=== PATIENT | female | born 2000 | race Caucasian/White ===

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

== ENCOUNTER 2021-05-19 04:32 | Outpatient (CLI) | payer MEDICAID, SELFPAY ==
--- NOTE | 2021-06-12 10:17 | W.ZIOMONITOR ---
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 Average heart rate was 84, minimum 46, maximum 161 There were rare ventricular ectopic beats. There was 1 ventricular couplet There were occasional atrial premature beats Patient symptoms corresponded at times to atrial and ventricular ectopics, other times only to sinus rhythm
== END 2021-05-19 04:33 | disposition home or self-care (01) ==
PROVIDERS: PCP Nurse Practitioner Family; Visit Provider Nurse Practitioner Family
DX: I49.8 Other specified cardiac arrhythmias (principal)
CPT/HCPCS: 93246

== ENCOUNTER 2021-11-24 12:04 | Outpatient (REF) | payer MEDICAID, SELFPAY ==
[2021-11-24 16:51] LABS: HCT 43.8 % (36.0-46.0); HGB 14.8 g/dL (11.2-15.7); MCH 29.7 pg (27.0-33.0); MCHC 33.8 % (32.0-36.0); MPV 11.7 fL (8.0-11.0); Platelet Count 304 10^3/uL (130-400); RBC 4.98 10^6/uL (3.93-5.22); RDW 11.6 % (11.7-14.6); RDW-SD 37.2 fL; WBC 10.48 10^3/uL (4.4-10.8)
[2021-11-24 17:22] LABS: Anion Gap 11.2 mmol/L (3-11); BUN 12 mg/dL (7-18); CO2 25.8 mmol/L (21.0-32.0); CREATININE 0.8 mg/dL (0.55-1.02); Calcium 9.4 mg/dL (8.5-10.1); Chloride 104 mmol/L (98-107); Glucose 86 mg/dL (74-106); Potassium 4.1 mmol/L (3.5-5.1); Sodium 141 mmol/L (136-145)
== END 2021-11-24 12:05 | disposition home or self-care (01) ==
LOC: NCHCN 12:04
PROVIDERS: PCP Nurse Practitioner Family; Visit Provider Nurse Practitioner Family
DX: R55 Syncope and collapse (principal)
CPT/HCPCS: 80048; 85027

== ENCOUNTER 2022-01-30 12:54 | Emergency (ER) | payer MEDICAID, SELFPAY ==
[2022-01-30 12:59] VITALS: BP 143/88; PULSE 68; RESP 14; TEMP 36.6; O2SAT 99
[2022-01-30 14:04] LABS: Bilirubin Negative (Negative); Blood Negative (Negative); Clarity Clear (Clear); Glucose Negative (Negative); Ketones Negative (Negative); Leukocyte Esterase Negative (Negative); Nitrite Negative (Negative); Specific Gravity >= 1.030 (1.005-1.025); Urobilinogen 0.2 EU/dL (Up TO 0.2)
--- NOTE | 2022-01-30 14:43 | ED.GENADUL_ITS ---
Discharge Plan Disposition Patient Disposition: HOME Condition: Stable Discharge Details Clinical Impression: Nausea and vomiting, Low back pain Primary Care Provider: Yvonne Cardona ED Provider: Dain Padgett Home Meds and New Rx's Prescriptions: Continued Francoise 14 mcg/24 hrs (3 yrs) 13.5 mg intrauterine device 1 device IY ONCE sertraline [Zoloft] 25 mg Tablet 75 mg PO DAILY Discharge Instructions Instructions: Low Back Strain (ED), Acute Nausea and Vomiting (ED) Additional Instructions: Please contact your primary care physician to arrange follow-up. Return to the ER immediately for any worsening or new concerning symptoms. Referrals: Yvonne Cardona [Primary Care Provider] - Discharge Data Discharge Date/Time-TO BE ENTERED AT DEPARTURE: 01/30/22 15:47 Medical Decision Making 21-year-old female here with bilateral flank and low back pain over the past couple days. Associated nausea. Patient is hemodynamically stable. Abdominal exam benign. Screening labs reviewed and mild leukocytosis noted. Urinalysis is not consistent with renal stone or infection. All results were discussed with the patient. Plan will be for outpatient follow-up. She was encouraged to return immediately for any worsening or new concerning symptoms. Screening medical screening exam was performed today. Usual customary discharge instructions were reviewed with the patient. Patient did verbalize understanding of importance of timely follow-up and need to return immediately for any worsening or new concerning symptoms. HPI General Mode of arrival: ambulatory . Date/Time Provider Initiated Documentation: 01/30/22 13:20 . Limitations to Documentation: no limitations . Information obtained by: patient . HPI Narrative: 21-year-old female here with chief complaint of flank pain. Patient notes 2 days of bilateral lower back pain that is moderate to severe. Patient states it feels like an ache. She has no associated abdominal pain. No dysuria. No pelvic pain. Patient did have some blood in her urine earlier today but notes she is menstruating. Patient also notes intermittent episodes of syncope with associated nausea vomiting over the past few years. This is being worked up and followed by primary care physician. Symptoms that she is experiencing today are different than this and she has not had any syncope over the past few days. Related Data Home Medications Medication Instructions Recorded Confirmed levonorgestrel 14 mcg/24 hrs (3 1 device intrauterine ONCE 12/06/01/30/22 yrs) 13.5 mg intrauterine device (Francoise) sertraline 25 mg tablet (Zoloft) 75 mg PO DAILY 01/30/22 01/30/22 Allergies Allergy/AdvReac Type Severity Reaction Status Date / Time No Known Allergies Allergy Verified 01/30/22 13:08 General Stated Complaint: FlankPain ARIELLA: 3 Review of Systems All systems reviewed & are unremarkable except as noted in HPI and below Constitutional Constitutional: Denies fever(s) Cardiovascular Cardiovascular: Denies chest pain and Denies dyspnea Respiratory Respiratory: Denies cough and Denies dyspnea Gastrointestinal Gastrointestinal: Denies abdominal pain PFSH All Active Problems Nausea and vomiting (Acute) Low back pain (Acute) Encounter for screening examination for sexually transmitted disease (Acute) Lactose intolerance (Acute) Anxiety (Chronic) Insomnia (Acute 05/08/12) Keratosis pilaris (Acute 05/29/14) Tension headache (Acute 05/29/14) IUD (intrauterine device) in place (Acute) 05/30/18 Francoise inserted. Keratosis pilaris (Acute 05/29/14) Medical History Born via Contraception 2017 poor compliance/tolerance of OCPs, DepoProvera, Nexplanon. 05/2018 Francoise inserted. Varicella age 5yr Surgical History Tonsillectomy and adenoidectomy Family History Mother Essential hypertension Mental disorder Bipolar, PTSD, ADD, & depression/anxiety Neoplasm Father Substance abuse alcoholic Essential hypertension Brother Mental disorder ADHD, bipolar, ODD, sensory integration Asthma Other Essential hypertension MGF, PGM Heart disease PGM - passed from congestive heart failure (age 58) Paternal uncle @ 2 days old (heart valve deficiency) Social History Smoking/Tobacco Use Status: Former Tobacco Use Smoking risk assessment performed?: Yes Alcohol Intake: never Drug use: Never Substance use type: does not use Seatbelt use: always Do you feel safe at home: Yes Do you feel safe in your relationship?: Yes Female Reproductive History Menstrual control method: progestin IUCD (francoise Lot #[id number] ) History History 0 Para Hx # Term Pregnancies Multiple births Hx # Pregnancies Ectopic pregnancies AB induced Hx Number of Living Children AB spontaneous Exam Const General: cooperative and no acute distress HENMT Mouth: moist mucous membranes Eyes Conjunctivae: normal conjunctivae Sclera: normal sclerae Resp Auscultation: clear to auscultation bilaterally, no rales, no rhonchi and no wheezes Cardio Rate: regular rate and not tachycardic Rhythm: regular rhythm GI Palpation: soft, not firm, no guarding, no masses, not rigid and nontender Back/Spine/Pelvis Back: no CVA tenderness Thoracic/Lumbar Spine: paraspinal tenderness (lumbar low back) and No lumbar spinal tenderness Skin General skin exam: no rashes or lesions noted Neuro General: patient alert, patient awake and tone normal Extrem General: no edema Course Vital Signs Vital signs: Vital Signs Temperature 36.6 C 01/30/22 12:59 Pulse 68 01/30/22 12:59 Respiratory Rate 14 01/30/22 12:59 Blood Pressure 143/88 H 01/30/22 12:59 Pulse Oximetry 99 01/30/22 12:59 Temperature 36.6 C 01/30/22 12:59 Temperature Source Skin 01/30/22 12:59 Pulse 68 01/30/22 12:59 Respiratory Rate 14 01/30/22 12:59 Respiratory Effort 01/30/22 13:09 Blood Pressure 143/88 H 01/30/22 12:59 Blood Pressure Position Sitting 01/30/22 12:59 Pulse Oximetry 99 01/30/22 12:59 Oxygen Delivery Method Room Air 01/30/22 12:59 Oxygen Flow Rate 0 01/30/22 12:59 Pain Level 2 01/30/22 13:43 Lab/Test Results Lab/Test Results: Laboratory Tests Range/Units 01/30/22 13:35 Urine Color (Yellow) Yellow Urine Clarity (Clear) Clear Urine pH (5-8) 6.0 Ur Specific [place] (1.005-1.025) >= 1.030 H Urine Protein (Negative) mg/dL Negative Urine Ketones (Negative) mg/dL Negative Urine Blood (Negative) Negative Urine Nitrite (Negative) Negative Urine Bilirubin (Negative) Negative Urine Urobilinogen (Up TO 0.2) EU/dL 0.2 Ur Leukocyte Esterase (Negative) Negative Urine Glucose (Negative) mg/dL Negative POC- Test(urine) Negative
[2022-01-30 15:00] LABS: Abs Immature Grans 0.02 10^3/uL (0.0-0.06); Absolute Basophil Count 0.05 10^3/uL (0.0-0.2); Absolute Eosinophil Count 0.09 10^3/uL (0.0-0.7); Absolute Neutrophil Count 6.95 10^3/uL (1.2-6.7); Basophils % 0.4; Eosinophils % 0.8; HCT 42.3 % (36.0-46.0); HGB 14.4 g/dL (11.2-15.7); Immature Grans % 0.2; Lymphocytes % 32.7; MCH 29.4 pg (27.0-33.0); MCV 87 fL (80-95); MPV 11.1 fL (8.0-11.0); Monocytes % 4.4; Neutrophils % 61.5; Platelet Count 303 10^3/uL (130-400); RBC 4.89 10^6/uL (3.93-5.22); RDW 11.7 % (11.7-14.6)
[2022-01-30 15:15] LABS: ALT 15 U/L (14-59); AST 8 U/L (15-37); Albumin 4.5 g/dL (3.4-5.0); Alkaline Phosphatase 52 U/L (46-116); Anion Gap 11.9 mmol/L (3-11); BUN 11 mg/dL (7-18); Bilirubin, Total 0.3 mg/dL (0.2-1.0); CO2 24.1 mmol/L (21.0-32.0); CREATININE 0.7 mg/dL (0.55-1.02); Calcium 8.9 mg/dL (8.5-10.1); Chloride 109 mmol/L (98-107); Creatine Kinase 63 U/L (26-192); Glucose 84 mg/dL (74-106); Potassium 3.7 mmol/L (3.5-5.1); Sodium 145 mmol/L (136-145); Total Protein 7.7 g/dL (6.4-8.2)
--- NOTE | 2022-02-02 16:39 | W.ED.FU ---
Follow Up Plan: I called the patient in followup and spoke with her. She notes feeling better. Still with some mild low back pain that is responding to ibuprofen. N?V resolved. She has not yet gotten in touch with PCP but will be calling tomorrow. I encouraged her to follow-up with PCP and reminded her that she should return to the ER for worsening or new concerning symptoms.
== END 2022-01-30 15:47 | disposition home or self-care (01) ==
PROVIDERS: Registered Nurse Emergency; Emergency Provider Student in an Organized Health Care Education/Training Program; PCP Nurse Practitioner Family
DX: R11.2 Nausea with vomiting, unspecified (principal); M54.50 Low back pain, unspecified; D72.829 Elevated white blood cell count, unspecified; R10.9 Unspecified abdominal pain
CPT/HCPCS: 36415; 80053; 81025; 82550; 99283; 81003; 85025

== ENCOUNTER 2022-06-25 15:23 | Outpatient (REF) | payer MEDICAID, SELFPAY ==
--- NOTE | 2022-06-25 14:30 | PAPFT_PTH ---
PATIENT: Ayah Walton LOC: [facility] U#:[id number] AGE/SX: 21/F ROOM: RE06/25/[address]: Michelle Vega : 2000 BED: DIS: 06/25/2022 SPEC #: [id number] RECD: 06/25/22 17:13 STATUS: FREDI REAidan #: [id number] RANCHO: 06/25/22 14:[address]: Michelle Vega DEPT: [facility] Cytology RECD BY: Edna Manzano ENTERED: 06/25/22 17:13 SP TYPE: PAPFT OTHR DR: Yvonne Cardona Tissues: 1 - CX/ENDOCX FOR PAP SMEARS Procedures: PAP THIN PREP/UVM Screening Comments: [id number]
[2022-06-28 17:53] LABS: Chlamydia Result Negative (Negative); GC Result Negative (Negative)
== END 2022-06-25 15:24 | disposition home or self-care (01) ==
LOC: LBN 15:23
PROVIDERS: PCP Nurse Practitioner Family; Visit Provider Advanced Practice Midwife
DX: Z00.00 Encounter for general adult medical examination without abnormal findings (principal); Z11.3 Encounter for screening for infections with a predominantly sexual mode of transmission; Z12.4 Encounter for screening for malignant neoplasm of cervix; N89.8 Other specified noninflammatory disorders of vagina; N76.0 Acute vaginitis
CPT/HCPCS: 87491; 87591; 88142; 87480; 87510; 87660

== ENCOUNTER 2022-07-19 17:56 | Outpatient (REF) | payer MEDICAID, SELFPAY | END 2022-07-19 17:57 | disposition home or self-care (01) | LOC: NCHCN 17:56 | PROVIDERS: PCP Nurse Practitioner Family; Visit Provider Family Medicine | DX: R30.0 Dysuria (principal) | CPT/HCPCS: 87480; 87510; 87660 ==

== ENCOUNTER 2022-07-23 01:24 | Outpatient (CLI) | payer MEDICAID, SELFPAY ==
[2022-07-25 17:23] LABS: T3,Free 4.2 pg/mL (2.8-5.3)
== END 2022-07-23 01:25 | disposition home or self-care (01) ==
LOC: LBO 01:24
PROVIDERS: PCP Nurse Practitioner Family; Visit Provider Advanced Practice Midwife
DX: F41.9 Anxiety disorder, unspecified (principal); I49.9 Cardiac arrhythmia, unspecified; E73.9 Lactose intolerance, unspecified
CPT/HCPCS: 36415; 84439; 84443; 84481

== ENCOUNTER 2023-02-21 02:39 | Outpatient (CLI) | payer MEDICAID, SELFPAY ==
[2023-02-21 11:10] LABS: Panorama Kit Sent via Fed Ex
[2023-02-21 11:18] LABS: Abs Immature Grans 0.02 10^3/uL (0.0-0.06); Absolute Basophil Count 0.04 10^3/uL (0.0-0.2); Absolute Eosinophil Count 0.07 10^3/uL (0.0-0.7); Absolute Lymphocyte Count 2.36 10^3/uL (1.2-3.4); Absolute Monocyte Count 0.34 10^3/uL (0.1-0.8); Absolute Neutrophil Count 4.87 10^3/uL (1.2-6.7); Basophils % 0.5; Eosinophils % 0.9; HCT 36.6 % (36.0-46.0); HGB 13.1 g/dL (11.2-15.7); Immature Grans % 0.3; Lymphocytes % 30.6; MCH 30.3 pg (27.0-33.0); MCHC 35.8 % (32.0-36.0); MCV 85 fL (80-95); Monocytes % 4.4; Neutrophils % 63.3; Platelet Count 236 10^3/uL (130-400); RBC 4.32 10^6/uL (3.93-5.22); RDW 11.1 % (11.7-14.6); RDW-SD 34.4 fL
[2023-02-21 11:27] LABS: Glucose,1 Hr (Glucola) 83 mg/dL (80-140)
[2023-02-23 09:55] LABS: Hepatitis B Surface Ag Negative (Negative)
[2023-02-23 11:03] LABS: HIV-1/2 Ag & Ab Screen Negative (Negative)
[2023-02-23 11:07] LABS: Hepatitis C Ab w Rflx HCV PCR Negative (Negative)
[2023-02-23 11:48] LABS: Rubella IgG Ab (UVM) Positive (See Note)
[2023-02-23 14:23] LABS: Varicella IgG Antibody Negative (See Note)
[2023-02-24 13:42] LABS: Syphilis IgG w/Reflex Nonreactive (Nonreactive)
[2023-03-04 11:00] LABS: Result Summary NEGATIVE; Specimen WB Whole Blood
== END 2023-02-21 02:40 | disposition home or self-care (01) ==
PROVIDERS: PCP Nurse Practitioner Family; Visit Provider Advanced Practice Midwife
DX: Z34.01 Encounter for supervision of normal first pregnancy, first trimester (principal)
CPT/HCPCS: 36415; 81220; 81222; 82950; 86787; 86803; 86850; 86900; 86901; 87340; 87389; 85025; 86762; 86780

== ENCOUNTER 2023-02-21 09:24 | Outpatient (REF) | payer MEDICAID, SELFPAY ==
[2023-02-21 11:25] LABS: *AMPHETAMINES SCREEN URINE Negative (Negative); *BARBITURATES SCREEN URINE Negative (Negative); *BENZODIAZEPINES SCREEN URINE Negative (Negative); Cannabinoids THC Negative (Negative); Cocaine Screen,Urine Negative (Negative); METHADONE URINE SCREEN Negative (Negative); OPIATES URINE SCREEN Negative (Negative)
[2023-02-21 11:28] LABS: Tricyclic Antidepressants Negative (Negative)
[2023-03-01 13:22] LABS: Buprenorphine Negative ng/mL (Cutoff: 5.0); Norbuprenorphine Negative ng/mL (Cutoff: 2.5)
== END 2023-02-21 09:25 | disposition home or self-care (01) ==
LOC: LBN 09:24
PROVIDERS: PCP Nurse Practitioner Family; Visit Provider Advanced Practice Midwife
DX: Z34.01 Encounter for supervision of normal first pregnancy, first trimester (principal)
CPT/HCPCS: 80307; 80348; 87086

== ENCOUNTER → 2023-04-19 01:25 | Outpatient (CLI) | payer MEDICAID, SELFPAY ==
--- NOTE | 2023-04-19 07:00 | DI.US_ITS ---
Exam(s) US OB 2-3 TRIMESTER EXAM: US OB 2-3 TRIMESTER CLINICAL HISTORY: anatomy,z34.91. TECHNIQUE: Transabdominal obstetrical ultrasound was performed. COMPARISON: US POCUS EXAM from 01/18/2023 FINDINGS: There is a single viable intrauterine gestation with cardiac activity identified-149 bpm. Amniotic fluid: There is a normal amount of amniotic fluid. Placental location: The placenta is fundal grade 1,with no evidence of placenta previa.This is betwee n the tip of the placenta and the internal cervical os is 7.4 cm. Distance between the cord insertio n into the placenta and the placental margin is 6.3 cm ANATOMY: A 3 vessel umbilical cord is seen. A four-chamber cardiac view was obtained. Right and left ventricular outflow tracts were imaged. There are no obvious abnormalities of the spinal column evident. There is no obvious abnormal ity of the anterior abdominal wall. stomach and urinary bladder are identified and there is no evidence of hydronephrosis. No abnormalities of the upper lip region are identified. No evidence of choroid plexus cysts i n the brain. Dating parameters place this at approximately 20 weeks and 5 days gestational age. BPD measures 20 weeks and 4 days HC measures 20 weeks and 5 days AC measures 20 weeks and 6 days FL measures 20 weeks and 4 days Estimated weight is 374 gm-0 pounds 13 ounces Fetus is at the 54th percentile on the Hadlock scale. IMPRESSION:: Single viable intrauterine gestation which is approximately 20 weeks and 5 days gestati onal age, implying an CLARE of September 01, 2023. There are no obvious anomalies evident on today's study. The placenta is fundal with no evidence of placenta previa. There is a normal amount of amniotic fluid. DATA REPOSITORY:
== END ==
PROVIDERS: PCP Nurse Practitioner Family; Visit Provider Advanced Practice Midwife
DX: Z34.92 Encounter for supervision of normal pregnancy, unspecified, second trimester (principal)
CPT/HCPCS: 76805

== ENCOUNTER 2023-05-02 11:24 | Outpatient (CLI) | payer MEDICAID, SELFPAY ==
[2023-05-02 11:42] VITALS: BP 113/68; PULSE 95
[2023-05-02 11:44] VITALS: BP 113/68; PULSE 95; RESP 16; TEMP 37.3
[2023-05-02 11:53] VITALS: BP 113/68; PULSE 95; TEMP 37.3
--- NOTE | 2023-05-02 13:00 | W.OBNST ---
Date of service: 05/02/23 Time of Service: 13:01 NST Evaluation Reason for NST Reasons for Nonstress Test: DECREASED MOVEMENT Gestational Age Gestational Age in Weeks and Days: 22 Weeks and 3Days Test and Monitor Explained Test/Monitor Explained: Test Explained Vital Signs Blood Pressure: 113/68 Pulse: 95 Temperature: 99.1 F Urine Results Urine Protein: Negative Urine Ketones: Negative Urine Glucose: Negative Urine Blood: Negative NST Information Date on Monitor: 05/02/23 Time on Monitor: 11:38 Date off Monitor: 05/02/23 Time off Monitor: 12:10 Total Time on Monitor: 32 NST Interventions: None Contraction Frequency: 0 NST Evaluation Patient States Movement: Present FHR Baseline: 150 Variability: Moderate 6-25 bpm Accelerations: 10x10 Decelerations: None NST Results: Reactive Note Ultrasound Done: N/A. NST Note Note: Pt appreciating movement after arrival in unit Had had some pedialyte at work and now the cramping has stopped. Reassurance offered, discharged to home. NST Reviewed and Verified by: Kaila Fu
[2023-05-02 13:02] VITALS: BP 113/68; PULSE 95; TEMP 37.3
== END 2023-05-02 12:42 | disposition home or self-care (01) ==
LOC: BCD 11:26 → OBS 11:31
PROVIDERS: PCP Nurse Practitioner Family; Visit Provider Advanced Practice Midwife
DX: O36.8121 Decreased fetal movements, second trimester, fetus 1 (principal); Z3A.20 20 weeks gestation of pregnancy
CPT/HCPCS: 59025

== ENCOUNTER 2023-06-13 03:24 | Outpatient (CLI) | payer MEDICAID, SELFPAY ==
[2023-06-13 12:58] LABS: Glucose,1 Hr (Glucola) 88 mg/dL (80-140); HCT 36.6 % (36.0-46.0); HGB 13.1 g/dL (11.2-15.7); MCH 30.5 pg (27.0-33.0); MCHC 35.8 % (32.0-36.0); MCV 85 fL (80-95); MPV 10.9 fL (8.0-11.0); Platelet Count 261 10^3/uL (130-400); RDW 12.2 % (11.7-14.6); RDW-SD 37.2 fL; WBC 9.42 10^3/uL (4.4-10.8)
== END 2023-06-13 03:25 | disposition home or self-care (01) ==
PROVIDERS: PCP Nurse Practitioner Family; Visit Provider Advanced Practice Midwife
DX: Z34.03 Encounter for supervision of normal first pregnancy, third trimester (principal); Z3A.28 28 weeks gestation of pregnancy
CPT/HCPCS: 36415; 82950; 85027; 86850; 90384

== ENCOUNTER 2023-07-27 09:02 | Outpatient (CLI) | payer MEDICAID, SELFPAY ==
[2023-07-27 11:49] LABS: ROM Plus Negative
[2023-07-27 12:17] VITALS: BP 128/76; PULSE 88; TEMP 36.6
--- NOTE | 2023-07-27 12:21 | W.OBNST ---
Date of service: 07/27/23 Time of Service: 12:21 NST Evaluation Reason for NST Reasons for Nonstress Test: LABOR Gestational Age Gestational Age in Weeks and Days: 34 Weeks and 5Days Test and Monitor Explained Test/Monitor Explained: Test Explained, Monitor Explained and Patient Verbalized Understanding Vital Signs Blood Pressure: 128/76 Pulse: 88 Temperature: 97.9 F Urine Results Urine Protein: Negative Urine Ketones: Positive Urine Glucose: Negative Urine Blood: Negative NST Information Date on Monitor: 07/27/23 Time on Monitor: 11:14 Date off Monitor: 07/27/23 Time off Monitor: 11:58 Total Time on Monitor: 44 NST Interventions: Notify Provider Contraction Frequency: 0 NST Evaluation Patient States Movement: Present FHR Baseline: 145 Variability: Absent Accelerations: 15x15 Decelerations: None NST Results: Reactive Note Ultrasound Done: N/A. NST Note Note: Ayah experienced a cramp in left lower back last night which wrapped around to her lower abdomen., She experienced leaking of fluid after the event. No contractions reported but she experiences discomfort when she urinates/ ROM-plus neg today. Thin white adherent discharge noted. vaginal pathogen screne sent and GBS swab. SVE - cervix closed and long. vertex -1. urine dip shows leukocytes and ketones. urine culture sent. pelvic rest x 2 weeks recommended. Follow up with visit tomorrow. NST Reviewed and Verified by: Michelle Vega
[2023-07-27 12:24] VITALS: BP 128/76; PULSE 88; TEMP 36.6
== END 2023-07-27 12:24 ==
LOC: BCD 09:04 → OBS 11:18
PROVIDERS: PCP Nurse Practitioner Family; Visit Provider Advanced Practice Midwife
DX: D72.828 Other elevated white blood cell count (principal); R82.4 Acetonuria; O47.03 False labor before 37 completed weeks of gestation, third trimester; Z3A.34 34 weeks gestation of pregnancy
CPT/HCPCS: 84112; 59025; 87081; 87086; 87480; 87510; 87660

== ENCOUNTER 2023-08-22 09:57 | Outpatient (CLI) | payer MEDICAID, SELFPAY ==
[2023-08-22 10:15] VITALS: BP 139/81; PULSE 111
[2023-08-22 10:25] VITALS: BP 140/82; PULSE 111; TEMP 36.6
[2023-08-22 10:41] LABS: HCT 37.8 % (36.0-46.0); HGB 12.9 g/dL (11.2-15.7); MCH 29.1 pg (27.0-33.0); MCHC 34.1 % (32.0-36.0); MCV 85 fL (80-95); MPV 11.6 fL (8.0-11.0); Platelet Count 231 10^3/uL (130-400); RBC 4.43 10^6/uL (3.93-5.22); RDW 12.6 % (11.7-14.6); RDW-SD 38.5 fL; WBC 8.16 10^3/uL (4.4-10.8)
[2023-08-22 10:57] LABS: ALT 19 U/L (14-59); AST 15 U/L (15-37); Albumin 2.5 g/dL (3.4-5.0); Alkaline Phosphatase 186 U/L (46-116); Anion Gap 9.6 mmol/L (3-11); BUN 9 mg/dL (7-18); Bilirubin, Total 0.3 mg/dL (0.2-1.0); CO2 22.4 mmol/L (21.0-32.0); CREATININE 0.6 mg/dL (0.55-1.02); Calcium 9.3 mg/dL (8.5-10.1); Chloride 104 mmol/L (98-107); Estimated GFR 130.07 (mL/min/1.73m2); Glucose 104 mg/dL (74-106); Potassium 4.3 mmol/L (3.5-5.1); Sodium 136 mmol/L (136-145); Total Protein 6.6 g/dL (6.4-8.2); Uric Acid 4.7 mg/dL (2.6-6.0)
[2023-08-22 10:58] LABS: PROTEIN 43.3 mg/dL; Prot/Crea Ur Ratio 0.24
--- NOTE | 2023-08-22 11:06 | W.OBNST ---
Date of service: 08/22/23 Time of Service: 11:06 NST Evaluation Reason for NST Reasons for Nonstress Test: DECREASED MOVEMENT Reason for NST Other: Elevated BP in Office Gestational Age Gestational Age in Weeks and Days: 38 Weeks and 3Days Test and Monitor Explained Test/Monitor Explained: Test Explained, Monitor Explained and Patient Verbalized Understanding Vital Signs Blood Pressure: 140/82 Pulse: 111 Temperature: 97.9 F Urine Results Urine Protein: Negative NST Information Date on Monitor: 08/22/23 Time on Monitor: 09:56 Date off Monitor: 08/22/23 Time off Monitor: 10:20 Total Time on Monitor: 24 NST Interventions: PO Hydration, Notify Provider and Other Contraction Frequency: 0 NST Evaluation Patient States Movement: Present FHR Baseline: 145 Variability: Moderate 6-25 bpm Accelerations: 15x15 Decelerations: None NST Results: Reactive Note Ultrasound Done: N/A. NST Note Note: CMP, CBC and urine prot/creat ratio are NML RTO in 3 days for repeat NST, BP check and labs Recommendation for induction of labor discussed with pt Will stop working as of today, note given NST Reviewed and Verified by: Kaila Fu
[2023-08-22 11:08] VITALS: BP 140/82; PULSE 111; TEMP 36.6
== END 2023-08-22 11:17 ==
LOC: BCD 09:59 → OBS 10:15
PROVIDERS: PCP Nurse Practitioner Family; Visit Provider Advanced Practice Midwife
DX: O36.8131 Decreased fetal movements, third trimester, fetus 1 (principal); O26.893 Other specified pregnancy related conditions, third trimester; R03.0 Elevated blood-pressure reading, without diagnosis of hypertension; Z3A.38 38 weeks gestation of pregnancy
CPT/HCPCS: 36415; 80053; 85027; 59025; 82565; 84156; 84550

== ENCOUNTER 2023-08-25 08:52 | Outpatient (CLI) | payer MEDICAID, SELFPAY ==
[2023-08-25 09:07] VITALS: BP 137/86; PULSE 103; TEMP 36.8
[2023-08-25 09:13] VITALS: BP 137/86; PULSE 103
[2023-08-25 09:41] LABS: HCT 37.3 % (36.0-46.0); HGB 12.9 g/dL (11.2-15.7); MCH 29.5 pg (27.0-33.0); MCHC 34.6 % (32.0-36.0); MCV 85 fL (80-95); MPV 11.7 fL (8.0-11.0); Platelet Count 224 10^3/uL (130-400); RBC 4.38 10^6/uL (3.93-5.22); RDW 12.6 % (11.7-14.6); RDW-SD 38.7 fL; WBC 7.94 10^3/uL (4.4-10.8)
[2023-08-25 09:48] LABS: PROTEIN < 6.0 mg/dL
[2023-08-25 09:51] LABS: COMMENT (LAB VIEW ONLY) < 13.00 mg/dL
[2023-08-25 09:56] LABS: ALT 14 U/L (14-59); AST 14 U/L (15-37); Albumin 2.5 g/dL (3.4-5.0); Alkaline Phosphatase 189 U/L (46-116); Anion Gap 6.9 mmol/L (3-11); BUN 9 mg/dL (7-18); Bilirubin, Total 0.2 mg/dL (0.2-1.0); CO2 24.1 mmol/L (21.0-32.0); CREATININE 0.7 mg/dL (0.55-1.02); Calcium 9.6 mg/dL (8.5-10.1); Chloride 106 mmol/L (98-107); Estimated GFR 125.33 (mL/min/1.73m2); Glucose 110 mg/dL (74-106); Potassium 4.5 mmol/L (3.5-5.1); Sodium 137 mmol/L (136-145); Total Protein 6.5 g/dL (6.4-8.2)
[2023-08-25 09:58] VITALS: BP 136/77; PULSE 88
--- NOTE | 2023-08-25 11:08 | W.OBNST ---
Date of service: 08/25/23 Time of Service: 09:56 NST Evaluation Reason for NST Reasons for Nonstress Test: OTHER, SEE COMMENT Reason for NST Other: Elevated B/P; Swelling Gestational Age Gestational Age in Weeks and Days: 38 Weeks and 6Days Test and Monitor Explained Test/Monitor Explained: Test Explained and Monitor Explained Vital Signs Blood Pressure: 137/86 Pulse: 103 Temperature: 98.2 F Urine Results Urine Protein: Negative Urine Ketones: Negative Urine Glucose: Negative Urine Blood: Negative NST Information Date on Monitor: 08/25/23 Time on Monitor: 09:06 Date off Monitor: 08/25/23 Time off Monitor: 09:56 Total Time on Monitor: 50 NST Interventions: PO Hydration NST Evaluation Patient States Movement: Present FHR Baseline: 140 Variability: Moderate 6-25 bpm Accelerations: 15x15 Decelerations: None NST Results: Reactive Note Ultrasound Done: N/A. NST Note Note: Ayah has reactive NST and negative pre-eclampsia labs. Will return in 2 days for repeat NST and testing if indicated. LYSSA NST Reviewed and Verified by: Michelle Martinez
[2023-08-25 11:09] VITALS: BP 137/86; PULSE 103; TEMP 36.8
== END 2023-08-25 10:05 | disposition home or self-care (01) ==
LOC: BCD 08:57 → OBS 08:59
PROVIDERS: PCP Nurse Practitioner Family; Visit Provider Advanced Practice Midwife
DX: R03.0 Elevated blood-pressure reading, without diagnosis of hypertension (principal); O26.893 Other specified pregnancy related conditions, third trimester; Z3A.38 38 weeks gestation of pregnancy
CPT/HCPCS: 36415; 80053; 85027; 59025; 82565; 84156

== ENCOUNTER 2023-08-27 11:51 | Inpatient (IN) | payer MEDICAID, SELFPAY ==
[2023-08-27] VITALS (63 sets, daily range): BP systolic 132–151; BP diastolic 79–102; PULSE 0–135; RESP 16; TEMP 36.6–37.1; O2SAT 99–100
[2023-08-27 12:21] LABS: HGB 13.8 g/dL (11.2-15.7); MCH 29.5 pg (27.0-33.0); MCHC 34.5 % (32.0-36.0); MCV 86 fL (80-95); MPV 12.3 fL (8.0-11.0); Platelet Count 236 10^3/uL (130-400); RBC 4.68 10^6/uL (3.93-5.22); RDW 12.5 % (11.7-14.6); RDW-SD 38.5 fL; WBC 8.61 10^3/uL (4.4-10.8)
[2023-08-27 12:31] LABS: COMMENT (LAB VIEW ONLY) 38.85 mg/dL; PROTEIN 8.1 mg/dL
[2023-08-27 12:37] LABS: ALT 17 U/L (14-59); AST 16 U/L (15-37); Albumin 2.6 g/dL (3.4-5.0); Alkaline Phosphatase 195 U/L (46-116); Anion Gap 12.5 mmol/L (3-11); BUN 9 mg/dL (7-18); Bilirubin, Total 0.2 mg/dL (0.2-1.0); CO2 20.5 mmol/L (21.0-32.0); CREATININE 0.6 mg/dL (0.55-1.02); Calcium 9.2 mg/dL (8.5-10.1); Chloride 104 mmol/L (98-107); Estimated GFR 130.07 (mL/min/1.73m2); Glucose 107 mg/dL (74-106); Potassium 4.3 mmol/L (3.5-5.1); Sodium 137 mmol/L (136-145); Total Protein 6.6 g/dL (6.4-8.2); Uric Acid 4.8 mg/dL (2.6-6.0)
--- NOTE | 2023-08-27 15:11 | HPE_ITS ---
Date of service: 08/27/23 Time of Service: 15:12 Assessment and Plan Assessment and plan (1) Gestational hypertension: Status: Acute Assessment and plan: preeclampsia labs WNL on admission. (2) Encounter for induction of labor: Status: Acute Assessment and plan: Admitted for cervical ripening with misoprostol. Consider ripening balloon overnight. Comfort measures and anticipate . (3) Group B streptococcal infection during : Status: Acute Assessment and plan: Will start penicillin prophylaxis when in active labor. OB-HPI Labor/Delivery History of Present Illness Reason for Visit: gestational hypertension Chief Complaint: Scheduled Induction of Labor Indication for Induction: Gestational Hypertension. CLARE Calculator Estimated Delivery Date Method Current WG Current Estimate 09/02/23 LMP (Certain) 39w 1d Other Estimates 09/05/23 Ultrasound #1 38w 5d Comments: Ayah came in for NST todat at 39 + 1 weeks gestation. BP 140s/90s. We discussed IOL at this time for gestational hypertension and Ayah is in agreement with this plan. History of Present Expected Delivery Route/Plan - CNM FOB/boyfriend - Asher Bruno (first child) BB yes to circ Varicella non-immune, offer vaccine (pt accepts) Prefers no epidural and would like to use nitrous. GBS POSITIVE- prophylaxis in labor Specific Issues/Plan 1. cfDNA= low risk male, CF screen negative, declines SMA & AFP 2. Low dose ASA due to Nullip and BMI > 30 3. Early glucola 83, @ 28 wks = 88 4. Rh neg, RhoGam @ 28 wks @ 06/13/23 5. heartburn - protonix escribed. 6. Hx irregular HR, had holter monitor and cardiac assessment [place] [address] Grande 7. 07/27- candidiasis - OTC monistat 7 recommended PFSH All Active Problems (Updated 08/27/23 @ 15:18 by Michelle Vega CNM) Group B streptococcal infection during (Acute) Encounter for induction of labor (Acute) Gestational hypertension (Acute) Maternal varicella, non-immune (Acute) Rh negative state in antepartum period (Acute) (Acute) Medical History (Updated 08/27/23 @ 15:18 by Michelle Vega CNM) Irregular heart rhythm Lactose intolerance Anxiety Insomnia (05/08/12) Keratosis pilaris (05/29/14) Tension headache (05/29/14) Contraception 2018 poor compliance/tolerance of OCPs, DepoProvera, Nexplanon. Francoise 2017- 2021 but had cramping and it was malpositioned. Now plans condoms Varicella age 5yr Surgical History Tonsillectomy and adenoidectomy Family History Mother Essential hypertension Mental disorder Bipolar, PTSD, ADD, & depression/anxiety Neoplasm Father Substance abuse alcoholic Essential hypertension Stroke Brother Mental disorder ADHD, bipolar, ODD, sensory integration Asthma Paternal Grandmother Heart disease Paternal Grandfather Diabetes Maternal Grandfather Diabetes Maternal Grandmother Diabetes Social History Smoking/Tobacco Use Status: Former Tobacco Use Smoking risk assessment performed?: Yes Alcohol Intake: never Drug use: Never Substance use type: does not use Seatbelt use: always Do you feel safe at home: Yes Do you feel safe in your relationship?: Yes Female Reproductive History Menstrual control method: condoms History History 1 Para 0 Hx # Term Pregnancies 0 Multiple births 0 Hx # Pregnancies 0 Ectopic pregnancies 0 AB induced 0 Hx Number of Living Children 0 AB spontaneous 0 Meds Allergies and Home Medications Allergies Allergy/AdvReac Type Severity Reaction Status Date / Time No Known Allergies Allergy Verified 08/22/23 09:43 Home Medications Medication Instructions Recorded Confirmed Type vits no.108-iron,carbonyl 1 tab PO DAILY #90 tabs 12/31/22 08/22/23 Rx 30 mg iron-folic acid 1 mg tablet (Kosher Plus Iron) aspirin 81 mg tablet,delayed 81 mg PO DAILY #90 tabs 03/02/23 08/22/23 Rx release pantoprazole 40 mg tablet,delayed 40 mg PO DAILY #30 tabs 04/19/23 08/22/23 Rx release (Protonix) Exam Physical Exam Vital signs: Pulse BP 93 H 138/85 08/27/23 14:37 08/27/23 14:37 Vital Signs Reviewed: Yes Constitutional Constitutional: no acute distress Detailed Labor and Delivery Exam Dilation: 0.5 Effacement (%): 0 station: -2 Cervix position: mid Consistency: soft Pal Score: Cervical Points Exam 0 1 2 3 Dilation Closed 1-2cm 3-4 cm 5-6cm Effacement 0-30% 40-50% 60-70% 80% Consistency Firm Medium Soft Station -3 -2 -1,0 +1,+2 Position Posterior Mid Anterior PAL Score(Cervical Ripeness Score): 4 Amniotic Membrane Status: Intact Monitor Mode: External Contraction Frequency(min): occasional Contraction Duration(sec): 40 Contraction Intensity: Mild Fetus A Heart Rate Baseline: 130 Monitor Accelerations: 15 X 15 Monitor Decelerations: None Variability: Moderate (6-25 BPM) Categories: Category I Respiratory Exam Respiratory Exam: Normal Cardiovascular Exam Cardiovascular Exam: Normal Abdominal Exam Abdominal Exam: Normal Exam Exam: Normal Detailed Exam Patient deferred: external exam (normal) External: Present normal urethra appearance Extremities Exam Extremities Exam: Normal Skin Exam Skin Exam: Normal Psychiatric Exam Psychiatric Exam: Normal Results Abnormal Lab Findings: Abnormal Labs 08/27/23 12:08 MPV 12.3 H Carbon Dioxide 20.5 L Anion Gap 12.5 H Glucose 107 H Alkaline Phosphatase 195 H Albumin 2.6 L Risk Assessment Risk for Shoulder Dystocia Historical/Initial OB: POSITIVE FOR: Pre- BMI>30; NEGATIVE FOR: Pelvic Abnormality, Previous Shoulder Dystocia or Previous Macrosomia 40 Weeks: POSTIVE FOR: Maternal Weight Gain >40lb; NEGATIVE FOR: EFW> 4500 gms or Post Dates Increased Risk?: Yes Risk for Pre-Eclampsia Date Initiated/Initials: 02/21/23 Yes, if one or more: NEGATIVE FOR: Hx Pre-E/Gest HTN, Chronic HTN, Multiple Gestation, Pre-gestational DM, Renal Disease, Systemic Lupus or APA Syndrome Yes, if 2 or more: POSITIVE FOR: Nulliparity and BMI>30 Risk for Post- Hemorrhage Initial: NEGATIVE FOR: Multiple Gestation, Previous PPH, Known Clotting Deficiency, Grand Multiparity or Anticoagulation 40 Weeks: POSITIVE FOR: Gestation HTN or Pre-E; NEGATIVE FOR: Anemia, hgb<10, Low platelets (thrombocytopenia), Polyhydraminios or EFW>4500gms At Risk?: Yes Risks Reviewed Risks Reviewed Upon Admission: Yes
[2023-08-27] MEDS: miSOPROStol 50 MCG TAB PO ×3 (15:20→23:55)
--- NOTE | 2023-08-27 15:22 | W.OBNST ---
Date of service: 08/27/23 Time of Service: 15:22 NST Evaluation Reason for NST Reasons for Nonstress Test: GESTATIONAL HYPERTENSION Gestational Age Gestational Age in Weeks and Days: 39 Weeks and 1Days Test and Monitor Explained Test/Monitor Explained: Test Explained, Monitor Explained and Patient Verbalized Understanding Vital Signs Blood Pressure: 143/96 Pulse: 105 Temperature: 98.6 F Urine Results Urine Protein: Negative Urine Ketones: Negative Urine Glucose: Negative Urine Blood: Negative NST Information Date on Monitor: 08/27/23 Time on Monitor: 11:09 Date off Monitor: 08/27/23 Time off Monitor: 11:51 Total Time on Monitor: 42 NST Interventions: PO Hydration NST Evaluation Patient States Movement: Present FHR Baseline: 145 Variability: Moderate 6-25 bpm Accelerations: 15x15 Decelerations: None NST Results: Reactive Note Ultrasound Done: N/A. NST Note Note: Ayah is here for NST due to gestational hypertension. Reactive NST, BP elevated and IOL discussed. 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 She will return when she packs. NST Reviewed and Verified by: Michelle Vega
[2023-08-27] MEDS: Zolpidem 5 MG TAB 10 MG PO (22:32)
[2023-08-28] VITALS (155 sets, daily range): BP systolic 76–152; BP diastolic 33–106; PULSE 0–155; RESP 16–18; TEMP 36.2–36.8; O2SAT 96–100; BMI 39.1
--- NOTE | 2023-08-28 04:31 | W.PM.OBNL1 ---
Date of service: 08/28/23 Time of Service: 04:31 Pelvic Exam Dilation: 5 Effacement (%): 90 station: -1 Cervix Position: mid Consistency: soft Vaginal Exam Presentation: Cephalic Contractions Monitor Mode: External Contraction Frequency(min): every 2-4 Contraction Duration(sec): 60 Intensity: Moderate/Strong Fetus A Monitor: External (US) Heart Rate Baseline: 140 Variability: Moderate (6-25 BPM) Categories: Category I FHR Rhythm: Regular Accelerations: 15 X 15 Decelerations: None Amniotic Membrane Status: Intact Assessment and Plan Assessment and plan (1) Group B streptococcal infection during : Status: Acute Assessment and plan: Will start antibiotic infusion per protocol (2) Encounter for induction of labor: Status: Acute Assessment and plan: Anticipate . Consider AROM after antibiotic infused. Ayah requests epidural analgesia and will prepare for that. (3) Gestational hypertension: Status: Acute Assessment and plan: Continue to monitor BP. Objective Abnormal lab results 08/27/23 Range/Units 12:08 MPV 12.3 H (8.0-11.0) fL Carbon Dioxide 20.5 L (21.0-32.0) mmol/L Anion Gap 12.5 H (3-11) mmol/L Glucose 107 H (74-106) mg/dL Alkaline Phosphatase 195 H (46-116) U/L Albumin 2.6 L (3.4-5.0) g/dL Temp Pulse Resp BP Pulse Ox 98.7 F 115 H 16 119/71 99 08/27/23 21:56 08/28/23 04:27 08/27/23 19:36 08/28/23 03:36 08/27/23 19:36 Laboratory Results WBC 8.61 10^3/uL (4.4-10.8) 08/27/23 12:08 RBC 4.68 10^6/uL (3.93-5.22) 08/27/23 12:08 Hgb 13.8 g/dL (11.2-15.7) 08/27/23 12:08 Hct 40.0 % (36.0-46.0) 08/27/23 12:08 MCV 86 fL (80-95) 08/27/23 12:08 MCH 29.5 pg (27.0-33.0) 08/27/23 12:08 MCHC 34.5 % (32.0-36.0) 08/27/23 12:08 RDW 12.5 % (11.7-14.6) 08/27/23 12:08 Plt Count 236 10^3/uL (130-400) 08/27/23 12:08 MPV 12.3 fL (8.0-11.0) H 08/27/23 12:08 Sodium 137 mmol/L (136-145) 08/27/23 12:08 Potassium 4.3 mmol/L (3.5-5.1) 08/27/23 12:08 Chloride 104 mmol/L (98-107) 08/27/23 12:08 Carbon Dioxide 20.5 mmol/L (21.0-32.0) L 08/27/23 12:08 Anion Gap 12.5 mmol/L (3-11) H 08/27/23 12:08 BUN 9 mg/dL (7-18) 08/27/23 12:08 Creatinine 0.6 mg/dL (0.55-1.02) 08/27/23 12:08 Est GFR (CKD-EPI 2020) 130.07 (mL/min/1.73m2) 08/27/23 12:08 Glucose 107 mg/dL (74-106) H 08/27/23 12:08 Uric Acid 4.8 mg/dL (2.6-6.0) 08/27/23 12:08 Calcium 9.2 mg/dL (8.5-10.1) 08/27/23 12:08 Total Bilirubin 0.2 mg/dL (0.2-1.0) 08/27/23 12:08 AST 16 U/L (15-37) 08/27/23 12:08 ALT 17 U/L (14-59) 08/27/23 12:08 Alkaline Phosphatase 195 U/L (46-116) H 08/27/23 12:08 Total Protein 6.6 g/dL (6.4-8.2) 08/27/23 12:08 Albumin 2.6 g/dL (3.4-5.0) L 08/27/23 12:08 Ur Random Creatinine 38.85 mg/dL 08/27/23 11:59 U Random Total Protein 8.1 mg/dL 08/27/23 11:59 U [place] Prot/Creat Ratio 0.20 08/27/23 11:59 Patient ABO/Rh A Negative 08/27/23 12:08 Antibody Screen POSITIVE 08/27/23 12:08 Antibody Identification Anti-D 08/27/23 12:08 Vital Signs Reviewed: Yes Notable Details: BP 130s/70-90s. pulse 100-108. Subjective Patient Reports: No new Complaints Interval history since last seen: Ayah received 3 doses of misoprostol and cervical ripening balloon was placed. She also took ambien for sleep and slept well. She awoke with contractions and the balloon was removed easily. Results Hemoglobin/Hematocrit: Hgb 13.8 g/dL (11.2-15.7) 08/27/23 12:08 Hct 40.0 % (36.0-46.0) 08/27/23 12:08 Abnormal Lab Findings: Abnormal Labs 08/27/23 12:08 MPV 12.3 H Carbon Dioxide 20.5 L Anion Gap 12.5 H Glucose 107 H Alkaline Phosphatase 195 H Albumin 2.6 L
[2023-08-28] MEDS: Lactated Ringers 1,000 ML 200 ML IV (04:41)
[2023-08-28] MEDS: Penicillin G POT. 5,000,000 UNITS in Normal Saline 100 ML 200 UNITS IVPB (04:43)
[2023-08-28] MEDS: Normal Saline Flush 10 ML SYR IVP ×3 (05:09→23:57)
--- NOTE | 2023-08-28 05:19 | ANES.PREOP_ITS ---
General Info Date of Service Date Performed: 08/28/23 Height: 5 ft 3 in Weight: 100.244 kg Body Mass Index (BMI): 39.1 Meds Allergies and Home Medications Allergies Allergy/AdvReac Type Severity Reaction Status Date / Time No Known Allergies Allergy Verified 08/22/23 09:43 Home Medication Medication Instructions Recorded vits no.108-iron,carbonyl 1 tab PO DAILY #90 tabs 12/31/22 30 mg iron-folic acid 1 mg tablet (Kosher Plus Iron) aspirin 81 mg tablet,delayed 81 mg PO DAILY #90 tabs 03/02/23 release pantoprazole 40 mg tablet,delayed 40 mg PO DAILY #30 tabs 04/19/23 release (Protonix) Current Visit Medications: Current Medications Generic Name Dose Route Start Last Admin Trade Name Freq PRN Reason Stop Dose Admin Ringer's Solution 1,000 mls @ 200 mls/hr 08/27/23 12:00 08/28/23 04:41 IV 200 mls/hr INFUSION VIVIANE Administration Penicillin G Potassium 5,000, 100 mls @ 200 mls/hr 08/28/23 05:00 08/28/23 04:43 000 units/ Sodium Chloride IVPB 08/28/23 05:29 200 mls/hr NOW ONE Administration Penicillin G Potassium 3,000, 50 mls @ 100 mls/hr 08/28/23 09:00 000 units/ Sodium Chloride IVPB Q4H VIVIANE IV Miscellaneous Supplies 1 each 08/27/23 12:00 Iv Access IV DIRECTED VIVIANE IV Miscellaneous Supplies 1 each 08/28/23 04:30 Iv Access IV DIRECTED VIVIANE Misoprostol 50 mcg 08/27/23 15:30 08/27/23 23:55 Misoprostol 50 Mcg Tab PO 50 mcg Q4H VIVIANE Administration Sodium Chloride 0 ml 08/27/23 11:51 Normal Saline Flush 10 Ml Syr IVP PRN PRN Sodium Chloride 0 ml 08/27/23 20:00 08/28/23 05:09 Normal Saline Flush 10 Ml Syr IVP 10 ml BID VIVIANE Administration Sodium Chloride 0 ml 08/27/23 11:51 Normal Saline 10 Ml Vial IJ DIRECTED PRN Sodium Chloride 0 ml 08/28/23 04:22 Normal Saline Flush 10 Ml Syr IVP PRN PRN Sodium Chloride 0 ml 08/28/23 08:30 Normal Saline Flush 10 Ml Syr IVP BID VIVIANE Sodium Chloride 0 ml 08/28/23 04:22 Normal Saline 10 Ml Vial IJ DIRECTED PRN Terbutaline Sulfate 0.25 mg 08/27/23 11:51 Terbutaline 1 Mg/Ml Vial SC PRN PRN Zolpidem Tartrate 10 mg 08/27/23 21:00 08/27/23 22:32 Zolpidem 5 Mg Tab PO 08/28/23 06:00 10 mg 2100 VIVIANE Administration PFSH Active Problems Active Problems: Problem Status Onset Code Group B streptococcal infection during O98.819, B95.1 Encounter for induction of labor Z34.90 Gestational hypertension O13.9 Maternal varicella, non-immune O09.899, Z28.39 Rh negative state in antepartum period O26.899, Z67.91 Z34.90 Medical History Medical History (Updated 08/27/23 @ 15:18 by Michelle Vega CNM) Irregular heart rhythm Lactose intolerance Anxiety Insomnia (05/08/12) Keratosis pilaris (05/29/14) Tension headache (05/29/14) Contraception 2018 poor compliance/tolerance of OCPs, DepoProvera, Nexplanon. Francoise 2017- 2021 but had cramping and it was malpositioned. Now plans condoms Varicella age 5yr Surgical History Surgical History Tonsillectomy and adenoidectomy Tobacco Smoking/Tobacco Use Status: Former Tobacco Use Alcohol Alcohol Intake: never Substance Use Substance use: Never Substance use type: does not use Prental History History 2 1 Para 0 Hx # Term Pregnancies 0 Multiple births 0 Hx # Pregnancies 0 Ectopic pregnancies 0 AB induced 0 Hx Number of Living Children 0 AB spontaneous 0 Vital Signs and Lab Results Vital Signs Most Recent Vital Signs in EMR: Most Recent Vital Signs Temp Pulse Resp BP Pulse Ox 36.8 C 111 H 16 119/71 99 08/28/23 04:45 08/28/23 05:04 08/27/23 19:36 08/28/23 03:36 08/27/23 19:36 Lab Results 08/27/23 12:08 08/27/23 12:08 Blood Type / Crossmatch: 2 Patient ABO/Rh A Negative 08/27/23 Antibody Screen POSITIVE 08/27/23 Complete Blood Count: 2 White Blood Count 8.61 10^3/uL (4.4-10.8) 08/27/23 12:08 Red Blood Count 4.68 10^6/uL (3.93-5.22) 08/27/23 12:08 Hemoglobin 13.8 g/dL (11.2-15.7) 08/27/23 12:08 Hematocrit 40.0 % (36.0-46.0) 08/27/23 12:08 Platelet Count 236 10^3/uL (130-400) 08/27/23 12:08 Complete Metabolic Panel: 2 Sodium 137 mmol/L (136-145) 08/27/23 12:08 Potassium 4.3 mmol/L (3.5-5.1) 08/27/23 12:08 Chloride 104 mmol/L (98-107) 08/27/23 12:08 Carbon Dioxide 20.5 mmol/L (21.0-32.0) L 08/27/23 12:08 BUN 9 mg/dL (7-18) 08/27/23 12:08 Creatinine 0.6 mg/dL (0.55-1.02) 08/27/23 12:08 Est GFR (CKD-EPI 2020) 130.07 (mL/min/1.73m2) 08/27/23 12:08 Calcium 9.2 mg/dL (8.5-10.1) 08/27/23 12:08 Albumin 2.6 g/dL (3.4-5.0) L 08/27/23 12:08 Glucose 107 mg/dL (74-106) H 08/27/23 12:08 Liver Function Panel: 2 Alanine Aminotransferase (ALT/SGPT) 17 U/L (14-59) 08/27/23 12: 08 Aspartate Amino Transf (AST/SGOT) 16 U/L (15-37) 08/27/23 12:08 Coagulation Panel: 2 No Data to Display Cardiac Panel: 2 No Data to Display Arterial Blood Gas: 2 No Data to Display Venous Blood Gas: 2 No Data to Display Pancreas Panel: 2 No Data to Display Thyroid Panel: 2 No Data to Display Infectious Disease: 2 No Data to Display Blood Cultures: 2 No Data to Display Toxicology Panel: 2 No Data to Display Panel: 2 No Data to Display Anesthesia Assessment and Plan Anesthesia History Personal History: No History of Anesthesia Complications Family History: No Family History of Anesthesia Complications Exercise Tolerance Exercise Tolerance: Metabolic Equivalents>4 Cardiac & Pulmonary Exam Cardiac Exam: Normal S1/S2 Heart Sounds Pulmonary Exam: Clear Bilateral Breath Sounds Implantable Cardiac Device Does patient have a Pacemaker or an ICD?: No Airway Exam Known Difficult Airway: No Mallampati Class: 3 Mouth Opening: Normal (> 3cm) Thyromental Distance: Greater than 3 cm Neck Range of Motion: Full ROM Neck Circumference: Normal Teeth Condition: Normal Dentition ASA Classification ASA Score: ASA 2 Emergency Case?: No NPO Status NPO Status: Full Stomach Status Status: Confirmed Anesthesia Plan Resuscitation Status: Full Code Anesthesia Technique: Epidural Anesthesia Airway Planned: Natural Airway Pain Management: Epidural Monitors Used: Standard Monitors
[2023-08-28] MEDS: FentaNYL/ROPIvacaine 2 mcg/ml and 0.1% 200 ML CADD Cassette EP (05:59)
--- NOTE | 2023-08-28 06:17 | W.ANESNEU ---
Epidural/Spinal Catheter Date Performed: 08/28/23 Procedure Start: 05:34 Procedure Stop: 05:44 Requesting Provider: Michelle Vega Procedure Location: Obstetrics Reason Performed: Labor Epidural Standard Monitors Applied: ECG, Blood Pressure and SpO2 Patient Position: Sitting Sedation Given (Indicate Dose Given): No Sedation given Patient Mental Status: Awake Sterility: Hand Hygiene, Surgical Cap, Surgical Mask, Sterile Gloves, Sterile Drape/Sheet and Chlorhexidine Procedure Location: L2-L3 Interspace Epidural Needle: Tuohy 17 Guage Needle Length: 3.5 Inch Needle Approach: Midline Epidural Procedure: PRECIOUS to Saline Used Catheter Placed?: Catheter Placed (wire reinforced) Test Dose (Indicate Dose Given): 3ml 1.5% Lidocaine with 1:200K Epinephrine Given and Negative Test Dose Loss of Resistance Depth (cm): 7 Catheter depth at skin (cm): 12 Dressing: Sorbaview Dressing Placed Epidural Provider Bolus (Indicate Dose Given): Total Ropivacaine 0.1% with Fentanyl 2mcg/ml Given from pump. (ml) Dose:: 7 mL Additives (Indicate Dose Given ): None Infusion Medication: Medication Infusion Began Medication Infusion: Ropivacaine 0.1% with Fentanyl 2mcg/ml Maintenance Infusion Rate (ml/hour): 10 PCEA Bolus Dose (ml): 5 Block Level: N/A Paresthesia: None Ultrasound: Used to molly site Number of Attempts (See previous attempts in note section): 1 Procedure Tolerated: No Complications Procedure Outcome: Successful Procedure Comment:: currently in not too much discomfort, 7 mL load off pump done. States that she is more comfortable laying down now. Educated on PCEA function. Performed By: Hank Peña
[2023-08-28] MEDS: Penicillin G POT. 3,000,000 UNITS in Normal Saline 50 ML 100 UNITS IVPB (08:38)
--- NOTE | 2023-08-28 10:20 | PLAC_PTH ---
PATIENT: Ayah Walton LOC: OBS U#:[id number] AGE/SX: 23/F ROOM: OBS.303 RE08/27/[address]: Michelle Vega : 2000 BED: A DIS: 08/30/2023 SPEC #: [id number] RECD: 08/29/23 12:58 STATUS: FREDI REQ #: [id number] RANCHO: 08/28/23 10:[address]: Michelle Vega DEPT: Surgical Specimen RECD BY: Edna Manzano ENTERED: 08/29/23 13:01 SP TYPE: PLAC OTHR DR: Yvonne Cardona Tissues: 1 - PLACENTA (3RD TRIMESTER) Procedures: GROSS AND MICRO LEVEL 5 Comments: [id number]
[2023-08-28] MEDS: Bupivacaine 0.25% Pres-Free 30 ML VIAL (10:50)
[2023-08-28] MEDS: AZITHROMYCIN 500 MG in Normal Saline 250 ML 250 MG IVPB (10:58)
--- NOTE | 2023-08-28 11:10 | DI.RAD_ITS ---
Exam(s) XR ABDOMEN FLAT PLATE EXAM: XR ABDOMEN FLAT PLATE CLINICAL HISTORY: Stat C/s. TECHNIQUE: 2D digital imaging was performed. COMPARISON: No exams were available for comparison FINDINGS: Single AP view of the abdomen-pelvis. The bowel gas pattern is nonspecific in the supine position. There is a thin curvilinear linear density projected over the midline at L2 and L3 level. This may r epresent retained surgical foreign body. Other possibly would be epidural catheter. IMPRESSION: As above. Concerning for retained surgical foreign body. First read by K[facility]. Report called by myself to obstetrics department nurse 08/28/2023 2:10 p.m. Also discussed with Dr. Lin Dozier 08/28/2023 2:20 p.m. DATA REPOSITORY: RADIATION DOSE DELIVERED:
--- NOTE | 2023-08-28 11:11 | DI.VRAD_ITS ---
Addendum created by Pranav Pickard MD on 08/28/2023 11:25:37 AM EST: Addendum: THIS REPORT CONTAINS FINDINGS THAT MAY BE CRITICAL TO PATIENT CARE. The findings were verbally communicated via telephone conference with Michelle Vega Level Glass Forming Machine Operator, at 11:21 AM EST on 08/28/2023. The findings were acknowledged and understood. Initial report created on 08/28/2023 11:11:20 AM EST: PROCEDURE INFORMATION: Exam: XR Abdomen Exam date and time: 08/28/2023 10:59 AM Age: 23 years old Clinical indication: Study performed for possible retained surgical item in a patient currently under anesthesia. Surgical item - post . Screening exam; Post surgical status TECHNIQUE: Imaging protocol: Radiologic exam of the abdomen. Views: Frontal supine view of the abdomen. 1 View. COMPARISON: No relevant prior studies available. FINDINGS: Gastrointestinal tract: Bowel gas pattern is nonspecific with no evidence of bowel obstruction. Bones/joints: No acute osseous abnormality detected. Soft tissues: No radiodense foreign body is detected within the mid to lower abdomen or pelvis. The region of the diaphragm was not imaged. IMPRESSION: Nonspecific abdomen without evidence of bowel obstruction . No retained foreign body detected. Dictated and Authenticated by: Pranav Pickard MD. Ordering:SATINDER Martinez MD
--- NOTE | 2023-08-28 11:25 | PDOC.OPNB_ITS ---
Date of service: 08/28/23 Time of Service: 11:25 Operative Note Operative Note Delivery Method: Unscheduled STAT: Yes and Primary NTSV>37 Weeks: Yes DATE OF PROCEDURE: 08/28/23 PRE-OP DIAGNOSES: IUP 39w2d EGA. Prolapsed umbilical cord. PROCEDURE: unscheduled primary cesearean delivery SURGEON: Tavia Dozier Centrifugal Wax Molder: Michelle Vega Anesthesia: GETA Estimated blood loss (mL): 500 Pathology: other (cord blood, arterial blood gas and placenta) Complications: None Patient was transported to: PACU Patient's condition: stable Indications: 23yo G1 female admitted for induction of labor at 39w1d EGA secondary to gestational hypertension. Pt progressed in labor and received an epidural for labor analgesia. At approximately 5cm there was a spontaneous rupture amniotic sac with meconium stained amniotic fluid noted. SVE was performed and the vertex was palpated at -1 station along with an umbilical cord prolapsing past the head. A STAT was called and the pt was wheeled to the OR with Christophe Vega CNM applying upwards pressure on the head. She was able to feel the pulse of the umbilical cord during the transport process and while the pt was being prepped for surgery in the OR. She was able to elevated the vertex away from the prolapsed cord as the epidural catheter was redosed for surgical anesthesia Findings: Viable male in vertex presentation. Wt:3850gm (8lb-8oz) Apgars 8/9. Meconium stained fluid. Normal appearing placenta. 3 vessel cord. Nl uterus and adnexa. ABG: pH 7.26, BE -1. Procedure Description: Patient was taken to the operating room in her bed with the vertex support ed off of the umbilcal cord by the CNM. She was moved to the OR table while the vertx was supported and prepped and draped. A nash catheter to gravity drainage was placed and her epidural catheter was dosed. The vertex remained unengaged and away from the umbilical cord so Christophe Vega CNM removed her hand, scrubbed and acted as a surgical orderly for the remainder of the case.. Preop antibiotics were administered. After a adequate level of anesthesia was achieved a Pfannenstiel skin incision was made approximately 2 cm superior to the pubic symphysis using a scalpel and the underlying subcutaneous tissue dissected using Bovie electrocautery to the level of the rectus fascia. The rectus fascia was then nicked in the midline and the fascial incision extended laterally using Bovie electrocautery. It was at this point that the patient reported feeling pain. The epidural was redosed without improvement in her reports of pain. The patient was then intubated and general anesthesia administered. 2 Micheal clamps were applied to the superior rectus fascia and the rectus fascia was dissected off of the underlying rectus muscles using Bovie electrocautery and blunt technique. A similar technique was carried out on the inferior rectus fascia. Rectus muscles were then in the midline and the peritoneum entered bluntly. The peritoneal incision was extended laterally using blunt technique. A scalpel was used to incise the lower uterine segment in a transverse fashion. The uterine incision was extended bluntly and the a single gloved hand was placed into the uterine cavity and the head was successfully delivered through the uterine incision followed by the trunk and extremities with the assistance of fundal pressure and the attatchment and inflation of a Kiwi-Cup suction device place on the fetus' head. The cord was doubly clamped and cut and the infant handed off to the waiting pediatric team. A segment of umbilical cord was obtained and the placenta was extracted with a combination of fundal massage and gentle cord traction. The uterus was exteriorized cleared of all clots and debris and the uterine incision reapproximated with a running lock suture of 0 Vicryl followed by a second imbricating suture of 0 Vicryl. Uterine incision was noted be hemostatic. The uterus was returned to the abdomen and the paracolic gutters cleared of all c lots and debris. Uterine incision and the along with the bladder flap and the abdominal wall were all inspected and noted to be hemostatic. The rectus fascia was reapproximated with a running suture of 0 Vicryl. space within the subcutaneous tissue closed with a running suture of 2-0 Vicryl. The skin incision was reapproximated with a subcuticular closure of 4-0 Vicryl. Steri strips and a Mepilex dressing was applied. The uterus was massaged for any remaining clots and debris. The patient was transported to recovery area in stable condition. All sponge, lap, and needle counts correct. A flat plate of the abdomen was performed to document no instruments remaining in the operative field. Sandy Infant Gender: Male weight: 8 lb 8 oz
--- NOTE | 2023-08-28 11:55 | W.PM.OBNL1 ---
Date of service: 08/28/23 Time of Service: 11:55 Assessment and Plan Assessment and plan (1) Prolapsed cord: Status: Acute Assessment and plan: Ayah and her family members were notified of the need for an urgent due to prolapsed cord and of the presence of meconium stained fluid and they agree. She was prepared for a stat section Objective Abnormal lab results 08/27/23 Range/Units 12:08 MPV 12.3 H (8.0-11.0) fL Carbon Dioxide 20.5 L (21.0-32.0) mmol/L Anion Gap 12.5 H (3-11) mmol/L Glucose 107 H (74-106) mg/dL Alkaline Phosphatase 195 H (46-116) U/L Albumin 2.6 L (3.4-5.0) g/dL Temp Pulse Resp BP Pulse Ox 97.9 F 155 H 16 117/78 97 08/28/23 07:39 08/28/23 09:54 08/28/23 07:39 08/28/23 11:08 08/28/23 11:08 Laboratory Results WBC 8.61 10^3/uL (4.4-10.8) 08/27/23 12:08 RBC 4.68 10^6/uL (3.93-5.22) 08/27/23 12:08 Hgb 13.8 g/dL (11.2-15.7) 08/27/23 12:08 Hct 40.0 % (36.0-46.0) 08/27/23 12:08 MCV 86 fL (80-95) 08/27/23 12:08 MCH 29.5 pg (27.0-33.0) 08/27/23 12:08 MCHC 34.5 % (32.0-36.0) 08/27/23 12:08 RDW 12.5 % (11.7-14.6) 08/27/23 12:08 Plt Count 236 10^3/uL (130-400) 08/27/23 12:08 MPV 12.3 fL (8.0-11.0) H 08/27/23 12:08 Sodium 137 mmol/L (136-145) 08/27/23 12:08 Potassium 4.3 mmol/L (3.5-5.1) 08/27/23 12:08 Chloride 104 mmol/L (98-107) 08/27/23 12:08 Carbon Dioxide 20.5 mmol/L (21.0-32.0) L 08/27/23 12:08 Anion Gap 12.5 mmol/L (3-11) H 08/27/23 12:08 BUN 9 mg/dL (7-18) 08/27/23 12:08 Creatinine 0.6 mg/dL (0.55-1.02) 08/27/23 12:08 Est GFR (CKD-EPI 2020) 130.07 (mL/min/1.73m2) 08/27/23 12:08 Glucose 107 mg/dL (74-106) H 08/27/23 12:08 Uric Acid 4.8 mg/dL (2.6-6.0) 08/27/23 12:08 Calcium 9.2 mg/dL (8.5-10.1) 08/27/23 12:08 Total Bilirubin 0.2 mg/dL (0.2-1.0) 08/27/23 12:08 AST 16 U/L (15-37) 08/27/23 12:08 ALT 17 U/L (14-59) 08/27/23 12:08 Alkaline Phosphatase 195 U/L (46-116) H 08/27/23 12:08 Total Protein 6.6 g/dL (6.4-8.2) 08/27/23 12:08 Albumin 2.6 g/dL (3.4-5.0) L 08/27/23 12:08 Ur Random Creatinine 38.85 mg/dL 08/27/23 11:59 U Random Total Protein 8.1 mg/dL 08/27/23 11:59 U [place] Prot/Creat Ratio 0.20 08/27/23 11:59 Patient ABO/Rh A Negative 08/27/23 12:08 Antibody Screen POSITIVE 08/27/23 12:08 Antibody Identification Anti-D 08/27/23 12:08 Subjective Interval history since last seen: Ayah was resting comfortably after epidural. Second dose of peniciliin was infused. SVE performed. Vertex at -1 with large bulging bag of water noted. AROM performed for large gush of thick meconium stained fluid. a cluster of cord loops was noted next to the head after rupture and the vertex began descending. I placed a scalp electrode and heart rate was 130s. I kept my hand on the vertex and a stat was called. Dr. Dozier was present on the unit and the OR tem was called for a stat . I accompanied Ayah on the stretcher to the OR with my fingers on the vertex for a section. Results Hemoglobin/Hematocrit: Hgb 13.8 g/dL (11.2-15.7) 08/27/23 12:08 Hct 40.0 % (36.0-46.0) 08/27/23 12:08 Abnormal Lab Findings: Abnormal Labs 08/27/23 12:08 MPV 12.3 H Carbon Dioxide 20.5 L Anion Gap 12.5 H Glucose 107 H Alkaline Phosphatase 195 H Albumin 2.6 L
--- NOTE | 2023-08-28 12:03 | W.ANESPOSTOP ---
Postoperative Evaluation Date, Time and Location Date Performed: 08/28/23 Time Performed: 12:03 Patient Location: Obstetrics Vital Signs Most Recent Imported Vital Signs: Most Recent Vital Signs Temp Pulse Resp BP Pulse Ox 36.6 C 155 H 16 134/106 H 96 08/28/23 11:23 08/28/23 09:54 08/28/23 07:39 08/28/23 11:23 08/28/23 11:23 Pain Score Most Recent Pain Score: Most Recent Pain Score Pain Level [Abdomen] 3 08/27/23 19:36 Pain Level 0 08/28/23 11:23 Assessment Mental Status: Awake (Alert & Oriented to Patient Baseline) Airway and Respiratory Function: Patent airway with normal (patient baseline) respiratory exam Cardiovascular Function: Hemodynamically Stable Hydration Status: Adequately Hydrated Nausea & Vomiting: No Nausea or Vomiting Pain: Pain is tolerable per patient Peripheral Nerve Block: Patient did not receive a nerve block Postoperative Comments:: Discussed the events of the c section, medications put in to her epidural (morphine/dexmedetomidine), and IV pain meds used. She has no questions.
--- NOTE | 2023-08-28 14:42 | OBPPV_ITS ---
Date of service: 08/28/23 Time of Service: 14:42 Assessment and Plan Assessment and plan (1) Prolapsed cord: Status: Acute Qualifiers: Fetus number: single or unspecified fetus Qualified Code(s): O69.0XX0 - Labor and delivery complicated by prolapse of cord, not applicable or unspecified (2) delivery delivered: Status: Acute Assessment and plan: satisfactory recovery. No issues with postop xray of abd. No surgical instruments sponges left in abdomen. Subjective Subjective Interval history: POD 0 pLTCS for prolapsed cord. I have spoken to from DI regarding postop flat plate of abdomen. He called concerned that there may have been an object left inside of the abdomen at the time of the surgery. I reviewed the image with him and related to him that the area in question was the epidural catheter that remained in the pt's lumbar region. No additional imaging required. Patient comments: No complaints, Pain well controlled and Tolerating diet Patient's Mood: good. baby status: Doing well, Nursing well and Strong Bonding Observed [place] feeding status: Exclusively breast feeding Exam Physical Exam Vital signs: Temp Pulse Resp BP Pulse Ox 97.3 F L 102 H 16 120/82 99 08/28/23 14:00 08/28/23 14:00 08/28/23 14:00 08/28/23 14:00 08/28/23 14:00 Vital Signs Reviewed: Yes Results Hemoglobin/Hematocrit: Hgb 13.8 g/dL (11.2-15.7) 08/27/23 12:08 Hct 40.0 % (36.0-46.0) 08/27/23 12:08 Abnormal Lab Findings: Abnormal Labs 08/27/23 12:08 MPV 12.3 H Carbon Dioxide 20.5 L Anion Gap 12.5 H Glucose 107 H Alkaline Phosphatase 195 H Albumin 2.6 L
[2023-08-28] MEDS: Ketorolac 30 MG/ML VIAL IVP ×2 (18:18→23:55)
[2023-08-29] VITALS (7 sets, daily range): BP systolic 124–145; BP diastolic 83–90; PULSE 78–90; RESP 16–18; TEMP 36.6–36.8; O2SAT 97–100
[2023-08-29] MEDS: Ketorolac 30 MG/ML VIAL IVP (05:53)
[2023-08-29] MEDS: Normal Saline Flush 10 ML SYR IVP (05:53)
[2023-08-29] MEDS: Ibuprofen 600 MG TAB PO ×2 (14:10→20:00)
[2023-08-29] MEDS: Acetaminophen 325 MG TAB 650 MG PO ×2 (14:10→20:02)
[2023-08-29] MEDS: Docusate Sodium 100 MG CAP PO ×2 (14:11→21:14)
--- NOTE | 2023-08-29 20:01 | W.PM.OBPNV1 ---
Date of service: 08/29/23 Time of Service: 20:01 Assessment and Plan Assessment and plan (1) delivery delivered: Status: Acute Assessment and plan: POD1 with excellent pain control and bonding well with infant. Plan discharge tomorrow. Subjective Subjective Interval history: Postop day 1 pLTCS for prolapsed cord. Patient's Ann catheter was removed last evening. She is able to ambulate in the room without difficulty. Pain is controlled with nonsteroidal anti-inflammatories. Tolerating a regular diet and successfully breast-feeding. Patient comments: No complaints, Pain well controlled and Tolerating diet; no Bowel Movement Patient's Mood: Good. No issues with anxiety or questions regarding the circumstances leading up to her C/S baby status: Doing well, Nursing well and Strong Bonding Observed feeding status: Exclusively breast feeding Exam Physical Exam Vital signs: Temp Pulse Resp BP Pulse Ox 98 F 90 18 135/87 100 08/29/23 19:50 08/29/23 17:19 08/29/23 15:56 08/29/23 17:19 08/29/23 15:56 Vital Signs Reviewed: Yes Constitutional Constitutional: no acute distress HEENT Exam HEENT Exam: Normal Neck Exam Neck Exam: Normal Respiratory Exam Respiratory Exam: Normal Cardiovascular Exam Cardiovascular Exam: Normal Abdominal Exam Abdomen: Tender (mildly tender over uterine fundus) Fundal Exam Fundus: Below Umbilicus and Firm Rectal Exam Rectal Exam: Not Done Extremities Exam Extremity Exam: Normal Back/Spine/Pelvis Exam Back Exam: Normal Skin Exam Skin Exam: Normal Neurological Exam Neurological Exam: Normal Psychiatric Exam Psychiatric Exam: Normal Results Hemoglobin/Hematocrit: Hgb 13.8 g/dL (11.2-15.7) 08/27/23 12:08 Hct 40.0 % (36.0-46.0) 08/27/23 12:08 Abnormal Lab Findings: Abnormal Labs 08/27/23 12:08 MPV 12.3 H Carbon Dioxide 20.5 L Anion Gap 12.5 H Glucose 107 H Alkaline Phosphatase 195 H Albumin 2.6 L
[2023-08-30 03:41] VITALS: BP 154/91; PULSE 91; TEMP 36.9
[2023-08-30 04:01] VITALS: BP 137/90
[2023-08-30] MEDS: Ibuprofen 600 MG TAB PO (06:16)
[2023-08-30] MEDS: Acetaminophen 325 MG TAB 650 MG PO ×2 (06:16→10:16)
--- NOTE | 2023-08-30 07:45 | W.PM.OBPNV1 ---
Date of service: 08/30/23 Time of Service: 07:45 Assessment and Plan Assessment and plan (1) delivery delivered: Status: Acute Assessment and plan: Postoperative day #2 status post emergent low-transverse section due to cord prolapse. Doing well. Ambulating. Vital signs are stable. Discharge home. Blood pressure check in 24 to 48 hours. follow-up in 1 week. Subjective Subjective Interval history: Patient seen and examined this morning. Doing well. Pain is well-controlled. Ambulating, tolerating regular diet, and oral pain medication. Desires discharge home today. Breast-feeding is improving. baby status: Doing well, Nursing well and Strong Bonding Observed Exam Physical Exam Vital signs: Temp Pulse Resp BP Pulse Ox 98.5 F 91 H 18 137/90 100 08/30/23 03:41 08/30/23 03:41 08/29/23 15:56 08/30/23 04:01 08/29/23 15:56 Vital Signs Reviewed: Yes Constitutional Constitutional: no acute distress HEENT Exam HEENT Exam: Normal Neck Exam Neck Exam: Normal Respiratory Exam Respiratory Exam: Normal Cardiovascular Exam Cardiovascular Exam: Normal Abdominal Exam Abdomen: Tender Comments: Mepilex dressing in place Extremities Exam Extremity Exam: Normal and Edema (1+ bilateral); negative Calf Tenderness Neurological Exam Neurological Exam: Normal Psychiatric Exam Psychiatric Exam: Normal Results Hemoglobin/Hematocrit: Hgb 13.8 g/dL (11.2-15.7) 08/27/23 12:08 Hct 40.0 % (36.0-46.0) 08/27/23 12:08 Abnormal Lab Findings: Abnormal Labs 08/27/23 12:08 MPV 12.3 H Carbon Dioxide 20.5 L Anion Gap 12.5 H Glucose 107 H Alkaline Phosphatase 195 H Albumin 2.6 L
--- NOTE | 2023-08-30 07:51 | DSE_ITS ---
Date of service: 08/30/23 Time of Service: 07:51 DS: Diagnosis Discharge Diagnosis (1) delivery delivered: Status: Acute Asessment and Plan: Postoperative day #2 status post emergent low-transverse section due to cord prolapse. Doing well. Discharge home today. Follow-up in 24 hours for blood pressure check, and again in 1 week for postoperative and care. All questions were answered. Discharge Plan Disposition Patient Disposition: Home Condition: Good Discharge Details Reason For Visit: Gestational hypertension Admit Date/Time: 08/27/23 11:51 Admit Provider: Michelle Vega Attending Provider: Michelle Vega Primary Care Provider: Yvonne Cardona Hospital Course Hospital Course: Patient had care managed by our midwifery service. While in active labor, she had spontaneous rupture of membranes and a cord prolapse was noted. She was taken for an emergent section under general anesthesia. She delivered a viable male with Apgars of 8 and 9. Her postoperative and course were uncomplicated, and she was discharged home postoperative day #2. She will be seen in the office in 24 hours for blood pressure check due to mild elevation in her blood pressures, particularly in the diastolic pressure. She is completely asymptomatic for preeclampsia. And will monitor her closely. Home Meds and New Rx's Prescriptions: New ibuprofen 800 mg tablet 800 mg PO Q8H Qty: 60 1RF docusate sodium [Colace] 100 mg capsule 100 mg PO BID Qty: 60 1RF oxycodone-acetaminophen [Percocet] 5-325 mg tablet 1 tab PO Q8H PRNQty: 7 0RF No Action pantoprazole [Protonix] 40 mg tablet,delayed release (DR/EC) 40 mg PO DAILY Qty: 30 8RF Kosher Plus Iron 30 mg iron- 1 mg tablet 1 tab PO DAILY Qty: 90 4RF aspirin 81 mg tablet,delayed release (DR/EC) 81 mg PO DAILY Qty: 90 3RF Rx Instructions: take one tab daily and two tabs every other day alternating Discharge Instructions Additional Instructions: Blood pressure check at [facility] in 24 hours. Postop visit at [facility] in 1 week. Stand Alone Forms: BC Instructions, BC Discharge Instruc Activity:: Pelvic rest, no heavy lif Equipment/Supplies:: No Equipment Needed Diet:: As Tolerated Discharge Orders Discharge Orders: Discharge Order (Routine); Ordered 08/30/23 Ordered By: Hanny Liang OB:DS Summary Summary Episiotomy Description: None Laceration Description: None Laceration Extension: N/A Contraception Discussed Contraception Discussed: Yes, Infant Gender-Baby A: Male weight: 8 lb 7.805 oz Status at Discharge Functional status at discharge: independent ambulation Overall status at discharge: patient is progressing back to baseline Mental Status: mental status grossly normal Speech and Movement: speech and movement normal Mood: congruent mood Affect: normal affect Quality:SDOH Health Related Social Needs: No Data to Display Exam Physical Exam Vital signs: Temp Pulse Resp BP Pulse Ox 98.5 F 91 H 18 137/90 100 08/30/23 03:41 08/30/23 03:41 08/29/23 15:56 08/30/23 04:01 08/29/23 15:56 Vital Signs Reviewed: Yes Notable Details: Mild elevation in diastolic blood pressure. Will continue to monitor Constitutional Constitutional: no acute distress Comments: See physical examination from progress note dated 08/30/2023. PFSH All Active Problems delivery delivered (Acute) 08/28/23. Prolapsed cord at 5cm. Apgars 8/9. Prolapsed cord (Acute) Group B streptococcal infection during (Acute) Encounter for induction of labor (Acute) Gestational hypertension (Acute) Maternal varicella, non-immune (Acute) Rh negative state in antepartum period (Acute) (Acute) Medical History Irregular heart rhythm Lactose intolerance Anxiety Insomnia (05/08/12) Keratosis pilaris (05/29/14) Tension headache (05/29/14) Contraception 2018 poor compliance/tolerance of OCPs, DepoProvera, Nexplanon. Francoise 2018- 2021 but had cramping and it was malpositioned. Now plans condoms Varicella age 5yr Surgical History Tonsillectomy and adenoidectomy Family History Mother Essential hypertension Mental disorder Bipolar, PTSD, ADD, & depression/anxiety Neoplasm Father Substance abuse alcoholic Essential hypertension Stroke Brother Mental disorder ADHD, bipolar, ODD, sensory integration Asthma Paternal Grandmother Heart disease Paternal Grandfather Diabetes Maternal Grandfather Diabetes Maternal Grandmother Diabetes Social History Smoking/Tobacco Use Status: Former Tobacco Use Smoking risk assessment performed?: Yes Alcohol Intake: never Drug use: Never Substance use type: does not use Housing: house Seatbelt use: always Do you feel safe at home: Yes Do you feel safe in your relationship?: Yes Female Reproductive History Menstrual control method: condoms History History 1 Para 0 Hx # Term Pregnancies 0 Multiple births 0 Hx # Pregnancies 0 Ectopic pregnancies 0 AB induced 0 Hx Number of Living Children 0 AB spontaneous 0 DS: Data Vitals/I&O Vitals and I&O: Vital Signs Temperature 98.5 F 08/30/23 03:41 Temperature 98.6 F 08/27/23 15:24 Temperature Source Oral 08/30/23 03:41 Pulse 91 H 08/30/23 03:41 Pulse 105 08/27/23 15:24 Pulse Rhythm Regular 08/29/23 19:50 Respiratory Rate 18 08/29/23 15:56 Blood Pressure 137/90 08/30/23 04:01 Blood Pressure 143/96 08/27/23 15:24 Blood Pressure Mean 105 08/30/23 04:01 Pulse Oximetry 100 08/29/23 15:56 Oxygen Delivery Method Room Air 08/28/23 11:30 Oxygen Flow Rate 10 08/28/23 11:08 Pain Level 3 08/30/23 06:16 Comment paged regarding BP 08/30/23 04:01 Intake & Output 08/29/23 08/29/23 08/30/23 11:59 23:59 11:59 Intake Total 260 / 260 Output Total 1700 / 1700 Balance -1440 / -1440 Intake: IV 260 / 260 Output: Urine 1700 / 1700 Other: Urine Color Pale
[2023-08-30 08:00] VITALS: BP 135/90; PULSE 88; RESP 18; TEMP 36.5; O2SAT 98
[2023-08-30] MEDS: Docusate Sodium 100 MG CAP PO (10:16)
== END 2023-08-30 11:00 | disposition home or self-care (01) | DRG 787 ==
LOC: BCD 08-28 10:48 → OBS 08-28 10:48
PROVIDERS: Obstetrics & Gynecology Gynecology; Admitting Provider Advanced Practice Midwife; PCP Nurse Practitioner Family; Visit Provider Advanced Practice Midwife
PROC: 10D00Z1 Extraction of Products of Conception, Low, Open Approach (ICD-10-PCS; CPT 59514; principal; 2023-08-28 10:00)
DX: O13.4 Gestational [pregnancy-induced] hypertension without significant proteinuria, complicating childbirth (principal); O36.0930 Maternal care for other rhesus isoimmunization, third trimester, not applicable or unspecified; O99.354 Diseases of the nervous system complicating childbirth; Z37.0 Single live birth; Z3A.39 39 weeks gestation of pregnancy; O99.824 Streptococcus B carrier state complicating childbirth; O69.0XX0 Labor and delivery complicated by prolapse of cord, not applicable or unspecified; O77.0 Labor and delivery complicated by meconium in amniotic fluid; O99.344 Other mental disorders complicating childbirth; F41.9 Anxiety disorder, unspecified; O99.72 Diseases of the skin and subcutaneous tissue complicating childbirth; L85.8 Other specified epidermal thickening; G44.209 Tension-type headache, unspecified, not intractable; R00.9 Unspecified abnormalities of heart beat; R12 Heartburn
CPT/HCPCS: 59514; 36415; 80053; 85027; 86850; 86900; 86901; 74018; 82565; 84156; 84550; 86870; 88307; J0131; J0330; J0456; J0665; J0690; J1100; J1885; J2274; J2371; J2401; J2405; J2540; J2704

== ENCOUNTER 2023-08-31 13:28 | Outpatient (CLI) | payer MEDICAID, SELFPAY ==
[2023-08-31 14:21] VITALS: BP 136/91; PULSE 95; TEMP 36
== END 2023-08-31 13:29 | disposition home or self-care (01) ==
LOC: BCD 13:29
PROVIDERS: PCP Nurse Practitioner Family; Visit Provider Obstetrics & Gynecology
DX: Z39.2 Encounter for routine postpartum follow-up (principal)
CPT/HCPCS: 99211

== ENCOUNTER 2023-10-10 14:15 | Outpatient (REF) | payer MEDICAID, SELFPAY ==
[2023-10-11 14:08] LABS: Chlamydia Result Negative (Negative); GC Result Negative (Negative)
== END 2023-10-10 14:16 | disposition home or self-care (01) ==
LOC: LBN 14:15
PROVIDERS: PCP Nurse Practitioner Family; Visit Provider Obstetrics & Gynecology
DX: Z11.3 Encounter for screening for infections with a predominantly sexual mode of transmission (principal)
CPT/HCPCS: 87491; 87591

== ENCOUNTER 2023-12-25 17:27 | Emergency (ER) | payer MEDICAID, SELFPAY ==
[2023-12-25 17:30] VITALS: BP 160/111; PULSE 95; RESP 20; TEMP 36.5; O2SAT 97
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
[2023-12-25] MEDS: fentaNYL 100 MCG/2 ML VIAL 50 MCG IVP ×4 (17:47→21:02)
[2023-12-25] MEDS: Ondansetron 4 MG/2 ML VIAL IVP (17:48)
[2023-12-25 17:57] VITALS: O2SAT 96
[2023-12-25 18:00] VITALS: O2SAT 96
[2023-12-25 18:01] VITALS: BP 136/91; PULSE 84; O2SAT 97
[2023-12-25 18:03] VITALS: O2SAT 98
[2023-12-25 18:53] LABS: Absolute Monocyte Count 0.73 10^3/uL (0.1-0.8); HCT 43.3 % (36.0-46.0); HGB 15.1 g/dL (11.2-15.7); MCH 29.8 pg (27.0-33.0); MCHC 34.9 % (32.0-36.0); MCV 85 fL (80-95); MPV 10.6 fL (8.0-11.0); Platelet Count 339 10^3/uL (130-400); RBC 5.07 10^6/uL (3.93-5.22); RDW 12.1 % (11.7-14.6); RDW-SD 37.3 fL; WBC 14.51 10^3/uL (4.4-10.8)
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
[2023-12-25 19:09] LABS: Absolute Eosinophil Count 0.15 10^3/uL (0.0-0.7); Absolute Lymphocyte Count 6.24 10^3/uL (1.2-3.4); Atypical Lymphocytes % 8 %
[2023-12-25 19:10] LABS: ALT 53 U/L (14-59); AST 28 U/L (15-37); Albumin 4.5 g/dL (3.4-5.0); Alkaline Phosphatase 112 U/L (46-116); Anion Gap 17.2 mmol/L (3-11); BUN 15 mg/dL (7-18); Bilirubin, Total 0.3 mg/dL (0.2-1.0); CO2 22.8 mmol/L (21.0-32.0); CREATININE 0.8 mg/dL (0.55-1.02); Calcium 9.2 mg/dL (8.5-10.1); Chloride 104 mmol/L (98-107); Diff Comment Manual Differential; Estimated GFR 106.77 (mL/min/1.73m2); Glucose 109 mg/dL (74-106); Potassium 3.2 mmol/L (3.5-5.1); RBC Morphology Normal; Sodium 144 mmol/L (136-145); Total Protein 8.3 g/dL (6.4-8.2)
[2023-12-25 19:11] LABS: HCG Qual (Serum) Negative
[2023-12-25] MEDS: Normal Saline 1,000 ML 1000 ML IV (19:35)
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
[2023-12-25 19:52] LABS: ETHANOL BLOOD 131.7 mg/dL (<10)
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
[2023-12-25 21:27] VITALS: BP 132/84; PULSE 80; RESP 16; O2SAT 98
== END 2023-12-25 21:27 | disposition home or self-care (01) ==
PROVIDERS: Emergency Provider Student in an Organized Health Care Education/Training Program; PCP Nurse Practitioner Family
DX: S42.332A Displaced oblique fracture of shaft of humerus, left arm, initial encounter for closed fracture (principal); S00.01XA Abrasion of scalp, initial encounter; M79.602 Pain in left arm; F10.920 Alcohol use, unspecified with intoxication, uncomplicated; V86.99XA Unspecified occupant of other special all-terrain or other off-road motor vehicle injured in nontraffic accident, initial encounter
CPT/HCPCS: 80053; 96361; 96374; 96375; 96376; 99284; 70450; 72125; 73030; 73060; 73080; 80320; 83605; 84703; 85025; 99283; J2405; J3010

== ENCOUNTER 2023-12-27 10:01 | Day surgery (SDC) | payer MEDICAID, SELFPAY ==
[2023-12-27] VITALS (9 sets, daily range): BP systolic 118–160; BP diastolic 53–111; PULSE 73–90; RESP 15–19; TEMP 36.3–36.8; O2SAT 97–100; BMI 35.3
[2023-12-27] MEDS: Acetaminophen 500 MG TAB 1000 MG PO (10:23)
[2023-12-27] MEDS: Celecoxib 200 MG CAP 400 MG PO (10:24)
[2023-12-27] MEDS: Lactated Ringers 1,000 ML 80 ML IV (10:48)
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
--- NOTE | 2023-12-27 12:18 | W.PM.DSUDISC ---
Date of service: 12/27/23 Time of Service: 12:18 Discharge Plan Disposition Patient Disposition: Home Condition: Good Discharge Details Reason For Visit: Left Humeral Shaft Fracture Attending Provider: Truman Xiao Primary Care Provider: Yvonne Cardona Home Meds and New Rx's Prescriptions: New acetaminophen 500 mg tablet 1,000 mg PO Q8H PRN (Reason: pain) Qty: 60 3RF ibuprofen 600 mg tablet 600 mg PO TID PRN (Reason: pain) Qty: 60 3RF oxycodone 5 mg tablet 5 mg PO Q6H PRN (Reason: pain) Qty: 12 0RF Continued Kosher Plus Iron 30 mg iron- 1 mg tablet 1 tab PO DAILY Qty: 90 4RF Discontinued oxycodone 5 mg capsule 5 mg PO Q4H PRNQty: 10 0RF ibuprofen [IBU] 800 mg tablet 800 mg PO TID PRN Discharge Instructions Additional Instructions: Humerus Fracture Fixation Discharge Instructions Activity: You have no general positioning or activity restrictions. However, it would be recommended to stay primarily in the sling initially. You may move your elbow and your wrist and fingers as tolerated. I would encourage you to work on hand and wrist range of motion first followed by elbow range of motion. You may discontinue the sling and rest the arm on pillows, however it may be comfortable for you. I would not try to lift anything more than 3 to 5 pounds with the left hand. You may apply ice directly to the left arm. Dressing/Cast: Your surgery site has been dressed with a Mepilex dressing followed by Juan Diego wrap. You may loosen the J[place] wrap if you feel it is too tight and then rewrapmore loosely. The Mepilex dressing may stay in place until your follow-up in 2 weeks. That dressing is not meant to be soaked although it may get slightly wet. If you decide to take a shower on that side, it would be recommended to cover with Cling wrap or Saran wrap to prevent it from getting soaked. Medications: - You should take Tylenol and Ibuprofen for baseline pain control. - You have been prescribed a stronger pain medication, Oxycodone, for breakthrough pain. - You may apply ice Follow-up: 10-14 days Stand Alone Forms: Anesthesia Discharge Inst., Anes.Nerve Block Instructions, Amie Sam ([facility]) Referrals: Truman Xiao MD [ [facility] STAFF PHYSICIAN] - 01/12/24 11:15 am Equipment/Supplies: Sling Activity:: Activity as Tolerated Remove Dressings/Wound Care:: Do Not Remove Shower/Bathe:: 72 hours and Cover Diet:: As Tolerated Discharge Orders Discharge Orders: Discharge Order (Routine); Ordered 12/27/23 Ordered By: Truman Xiao DS: Diagnosis Discharge Diagnosis (1) Fracture of shaft of left humerus: Status: Acute
[2023-12-27] MEDS: ceFAZolin 2 GM/50 ML BAG IVPB (12:25)
--- NOTE | 2023-12-27 12:34 | W.ANESNERVE ---
Nerve Block Single Injection Procedure Date and Time Date Performed: 12/27/23 Procedure Start: 11:56 Location Where Procedure Performed Procedure Location: Day Surgery Unit Reason Performed: Postoperative Analgesia Requesting Provider: Truman Xiao Timeout Performed Timeout Performed: Yes Monitoring Used ECG, Blood Pressure and SpO2 Sterility Sterility: Hand Hygiene, Surgical Cap, Surgical Mask, Sterile Gloves and Chlorhexidine Sedation Given During Procedure Sedation Given (Indicate Dose Given): Versed IV Dose:: 2 mg Patient Mental Status Patient Mental Status: Sedate with meaningful communication Nerve Block 1st Nerve Block: Laterality: Left Block Type: Supraclavicular Ultrasound Image Saved?: Yes Needle / Catheter Used: 100mm SonoPlex II Local Anesthetic Bolus (Indicate Dose Given): Lidocaine used for local infiltration of skin, Injected in 3-5ml increments after negative blood aspiration, Bupivacaine 0.25% Dose:: 10 ml and Exparel Dose:: 10 ml Additives (Indicate Dose Given): None Ultrasound: Sterile probe cover and gel used Nerve Stimulator: Supplement to Ultrasound use, Expected parasthesia or motor response elicited and No twitch or parasthesia noted < 0.5 mA Paresthesia: None Procedure Tolerated: No Complications and Patient tolerated well Procedure Outcome: Successful Procedure Comment: Yanira Padilla Performed By: Taco Padilla
[2023-12-27] MEDS: TRANEXAMIC ACID/SOD. CHL. 1,000 MG/100 ML BAG 600 MG IVPB (12:35)
[2023-12-27] MEDS: Bupivacaine 0.25% Pres-Free W/EPI 30 ML VIAL (12:56)
--- NOTE | 2023-12-27 14:01 | DI.RAD_ITS ---
Exam(s) XR HUMERUS LT EXAM: XR HUMERUS LT CLINICAL HISTORY: Fracture of shaft of left humerus TECHNIQUE: 2D and realtime digital imaging was performed. CONTRAST MATERIAL: Refer to procedure report. COMPARISON: CR,XR XR HUMERUS LT from 12/25/2023 FINDINGS: Fluoroscopy was provided for Dr. Xiao during the performance of a internal fixation of the proxi mal left humeral fracture. Please refer to the procedure report for complete details. Ka,r=1.04 mGy IMPRESSION: RADIATION DOSE DELIVERED: 0.0 458.3 0
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
--- NOTE | 2023-12-27 15:12 | W.ANESPOSTOP ---
Postoperative Evaluation Date, Time and Location Date Performed: 12/27/23 Time Performed: 15:11 Patient Location: Day Surgery Unit Vital Signs Most Recent Imported Vital Signs: Most Recent Vital Signs Temp Pulse Resp BP Pulse Ox 36.4 C L 80 16 118/72 100 12/27/23 15:00 12/27/23 15:00 12/27/23 15:00 12/27/23 15:00 12/27/23 15:00 Pain Score Most Recent Pain Score: Most Recent Pain Score Pain Level 5 12/27/23 15:00 Assessment Mental Status: Awake (Alert & Oriented to Patient Baseline) Airway and Respiratory Function: Patent airway with normal (patient baseline) respiratory exam Cardiovascular Function: Hemodynamically Stable Hydration Status: Adequately Hydrated Nausea & Vomiting: No Nausea or Vomiting Pain: Pain is Moderate or Severe (discomfort at proximal end of incision only) Postoperative Pain Management: Pain being addressed with medication Peripheral Nerve Block: Regional nerve block not resolved at time of post operative discharge
[2023-12-27] MEDS: oxyCODONE 5 MG TAB PO (15:26)
== END 2023-12-27 16:30 | disposition home or self-care (01) ==
PROVIDERS: PCP Nurse Practitioner Family; Visit Provider Student in an Organized Health Care Education/Training Program
PROC: (CPT 24420; principal; 2023-12-27 12:45)
DX: S42.332A Displaced oblique fracture of shaft of humerus, left arm, initial encounter for closed fracture (principal); V86.99XA Unspecified occupant of other special all-terrain or other off-road motor vehicle injured in nontraffic accident, initial encounter; F41.9 Anxiety disorder, unspecified; G47.00 Insomnia, unspecified
CPT/HCPCS: 24515; 76000; 76942; 81025; 73060; C9290; J0665; J0690; J1100; J2001; J2250; J2371; J2405; J2704

== ENCOUNTER 2024-01-12 14:35 | Outpatient (CLI) | payer MEDICAID, SELFPAY ==
--- NOTE | 2024-01-12 11:30 | DI.RAD_ITS ---
Exam(s) XR SHOULDER LT COMPLETE 2+V EXAM: XR SHOULDER LT COMPLETE 2+V CLINICAL HISTORY: F/U FRACTURE. TECHNIQUE: 2D digital imaging was performed. Two images were obtained. AP and Y views were obtained . COMPARISON: CR,XR XR SHOULDER LT COMPLETE 2+V from 12/25/2023 XA XR HUMERUS LT from 12/27/2023 FINDINGS: BONES: There are stable post operative changes of internal fixation of the left humeral fracture pres ent. No new fracture or dislocation. JOINTS: The joint spaces are well maintained. SOFT TISSUE: Normal. IMPRESSION: Stable postoperative changes. DATA REPOSITORY: RADIATION DOSE DELIVERED:
== END 2024-01-12 14:36 | disposition home or self-care (01) ==
LOC: DIORS 14:36
PROVIDERS: PCP Nurse Practitioner Family; Visit Provider Student in an Organized Health Care Education/Training Program
DX: S42.332D Displaced oblique fracture of shaft of humerus, left arm, subsequent encounter for fracture with routine healing; X58.XXXD Exposure to other specified factors, subsequent encounter
CPT/HCPCS: 73030

== ENCOUNTER 2024-02-09 11:10 | Outpatient (CLI) | payer MEDICAID, SELFPAY ==
--- NOTE | 2024-02-09 11:15 | DI.RAD_ITS ---
Exam(s) XR HUMERUS LT EXAM: XR HUMERUS LT CLINICAL HISTORY: f/u L humerus ORIF. TECHNIQUE: 2D digital imaging was performed. Two images were obtained. AP and lateral views were ob tained. COMPARISON: CR,XR XR HUMERUS LT from 12/25/2023 XA XR HUMERUS LT from 12/27/2023 CR XR SHOULDER LT COMPLETE 2+V from 01/12/2024 FINDINGS: BONES: There are stable post operative changes present. There is again seen a sideplate and screws t ransfixing the left humeral fracture. There has been no change in alignment of the orthopedic hardwa re fracture components. No new fracture or dislocation. JOINTS: The joint spaces are well maintained. SOFT TISSUE: Normal. IMPRESSION: Stable postoperative changes. DATA REPOSITORY: RADIATION DOSE DELIVERED:
== END 2024-02-09 11:11 | disposition home or self-care (01) ==
PROVIDERS: PCP Nurse Practitioner Family; Visit Provider Student in an Organized Health Care Education/Training Program
DX: S42.332A Displaced oblique fracture of shaft of humerus, left arm, initial encounter for closed fracture (principal)
CPT/HCPCS: 73060

== ENCOUNTER 2024-04-12 09:16 | Outpatient (RCR) | payer MEDICAID, SELFPAY | END 2024-04-19 23:59 | disposition home or self-care (01) | LOC: CARDOPNVT 09:16 | PROVIDERS: PCP Nurse Practitioner Family; Visit Provider Internal Medicine Cardiovascular Disease | DX: R00.2 Palpitations (principal) | CPT/HCPCS: 93225; 93226 ==

== ENCOUNTER 2024-04-12 15:26 | Outpatient (CLI) | payer MEDICAID, SELFPAY ==
--- NOTE | 2024-04-12 15:00 | DI.RAD_ITS ---
Exam(s) XR HUMERUS LT EXAM: XR HUMERUS LT INDICATION: ORIF L shoulder. COMPARISON: CR XR HUMERUS LT from 02/09/2024 TECHNIQUE: 2D digital imaging was performed. Two views. FINDINGS: Stable fracture and hardware alignment. No new abnormalities. Shoulder and elbow joints are unremar kable. DATA REPOSITORY: RADIATION DOSE DELIVERED:
== END 2024-04-12 15:27 | disposition home or self-care (01) ==
LOC: DIORS 15:27
PROVIDERS: PCP Nurse Practitioner Family; Visit Provider Physician Assistant
DX: S42.332A Displaced oblique fracture of shaft of humerus, left arm, initial encounter for closed fracture (principal)
CPT/HCPCS: 73060

== ENCOUNTER 2024-05-30 15:23 | Outpatient (REF) | payer MEDICAID, SELFPAY ==
[2024-05-31 12:52] LABS: Chlamydia Result Negative (Negative); GC Result Negative (Negative)
== END 2024-05-30 15:24 | disposition home or self-care (01) ==
LOC: LBN 15:23
PROVIDERS: PCP Nurse Practitioner Family; Visit Provider Obstetrics & Gynecology
DX: A64 Unspecified sexually transmitted disease (principal); Z30.431 Encounter for routine checking of intrauterine contraceptive device; Z01.419 Encounter for gynecological examination (general) (routine) without abnormal findings
CPT/HCPCS: 87491; 87591

== ENCOUNTER 2024-06-14 02:08 | Outpatient (CLI) | payer MEDICAID, SELFPAY ==
--- NOTE | 2024-06-14 06:45 | DI.US_ITS ---
Exam(s) US PELVIS TRANSVAGINAL EXAM: US PELVIS TRANSVAGINAL CLINICAL HISTORY: check iud,surveillance,[id number] TECHNIQUE: Transabdominal and transvaginal imaging was performed using standard protocol. COMPARISON: No exams were available for comparison FINDINGS: UTERUS: Mildly retroflexed.. 7.3 x 3.7 x 4.7 cm Endometrium: 5 mm the IUD is positioned low, in the lower uterine segment and upper cervix. One of the arms of the IUD projects into the myometrium of the lower uterine segment. Myometrium: Unremarkable. Cervix: Unremarkable. OVARIES: Right: Cyst or mass: None. Left: Cyst or mass: None. DOPPLER: Color: Symmetric and uniform flow to both ovaries. No hyperemia. CUL-DE-SAC: Free fluid: Trace IMPRESSION: 1. IUD is positioned pabnormally low, in lower uterine segment and upper cervix. One of the arms pro jects into the myometrium.. 2. Unremarkable bilateral ovaries. DATA REPOSITORY:
== END 2024-06-14 02:28 ==
LOC: DI 02:08
PROVIDERS: PCP Nurse Practitioner Family; Visit Provider Obstetrics & Gynecology
DX: Z30.431 Encounter for routine checking of intrauterine contraceptive device (principal)
CPT/HCPCS: 76830; 76856

== ENCOUNTER 2024-06-14 09:08 | Outpatient (CLI) | payer MEDICAID, SELFPAY ==
[2024-06-14 09:55] LABS: Amylase 43 U/L (25-115); Lipase 49 U/L (16-77); TSH (W/Ref FT4) 1.56 uIU/mL (0.36-3.74)
[2024-06-15 12:47] LABS: IgA 112 mg/dL (85-499); Interpretation (See Note); Tissue Transglutaminase IgA <4.0 CU (<20.0)
== END 2024-06-14 09:09 | disposition home or self-care (01) ==
LOC: LBO 09:08
PROVIDERS: PCP Nurse Practitioner Family; Visit Provider Nurse Practitioner Family
DX: K58.0 Irritable bowel syndrome with diarrhea (principal); K90.41 Non-celiac gluten sensitivity; R14.0 Abdominal distension (gaseous)
CPT/HCPCS: 36415; 82784; 83516; 83690; 82150; 84443

== ENCOUNTER 2024-10-18 01:48 | Outpatient (CLI) | payer OTHER, SELFPAY ==
--- NOTE | 2024-10-18 07:30 | DI.US_ITS ---
APPROVED REPORT EXAM: Comprehensive 2D, Doppler, and color-flow Echocardiogram Patient Location: Out-Patient Workers Compensation Manager: Kenji August RDCS (AE) Indications: Atrial premature depolarization Other Information Study Quality: Good Conclusion Normal left ventricular wall thickness and chamber size. Ejection fraction is 60%. Wall motion is n ormal Normal right ventricular size and function Both atria are normal in size There is no structural or hemodynamically significant valvular disease Wall motion Left Ventricle The left ventricle is normal size. Left ventricular systolic function is normal. The left ventricular ejection fraction is within the normal range. There is normal left ventricular wall thickness. There is normal LV segmental wall motion. The left ventricular diastolic function is normal. There is no v entricular septal defect visualized. LVEF is 60%. Right Ventricle The right ventricle is normal size. The right ventricular systolic function is normal. Atria The left atrium size is normal. The right atrium size is normal. The interatrial septum is intact wit h no evidence for an atrial septal defect. Aortic Valve The aortic valve is normal in structure. Aortic valve is trileaflet. There is no aortic valvular sten osis. No aortic regurgitation is present. Mitral Valve The mitral valve is normal in structure. No evidence of mitral valve stenosis. There is no mitral danny ve regurgitation noted. Tricuspid Valve The tricuspid valve is normal in structure. There is no tricuspid valve stenosis. Trace tricuspid reg urgitation. Pulmonic Valve The pulmonary valve is normal in structure. There is no pulmonic valvular stenosis. Trace pulmonic re gurgitation. Great Vessels The aortic root is normal in size. The ascending aorta is normal in size. Aortic arch is normal in ca liber. IVC is normal in size and collapses >50% with inspiration. Pericardium There is no pericardial effusion. 2D Dimensions IVSD d PLAX 0.69 cm F: 0.6-1.0 Ao Root d 2.59 cm F: 2.7 - 3.3 LVPW d PLAX 0.70 cm F: 0.6 - 1.0 Ao Asc Diam d 2.67 cm F: 2.3 - 3.1 LVID d PLAX 4.94 cm F: 3.8 - 5.2 LVDs 3.35 cm F: 2.2 - 3.5 LV EF Teichholz 60.3 % FS 32.24 % LV EDV (Teich) 115.2 mL LV ESV (Teich) 45.8 mL Stroke Vol Index (Teich) 35.23 M-Mode TAPSE 2.20 cm (M/F) >1.7 Auto EF LV EDV A4C 124.0 mL LV EDV A2C 128.1 mL LV EDV BP 126.1 mL LV ESV A4C 49.9 mL LV ESV A2C 51.0 mL LV ESV BP 51.7 mL LVEF(%) A4C 59.7 % LVEF(%) A2C 60.2 % LVEF(%) BP 59.0 % LV SV A4C 74.0 ml LV SV A2C 77.1 ml LV SV BP 74.4 ml LV CO A4C 6.7 L/min LV CO A2C 5.7 L/min LV CO BP 6.2 L/min HR A4C 90.69 BPM HR A2C 74.38 BPM LV EDV Index (BP) LA Volume LA Length A4C 4.4 cm LA Length A2C 3.9 cm LA Area A4C s 11.24 cm2 LA Area A2C s 10.93 cm2 LA Vol A4C A-L 24.15 mL LA Vol A2C A-L 26.12 mL LA Vol Biplane A-L 26.8 mL LA Vol/BSA A4C A-L LA Vol/BSA A2C A-L LA Vol/BSA BP A-L 13.6 mL/m2 LA Vol A4C MOD 22.4 mL LA Vol A2C MOD 25.5 mL LA Vol BP MOD 25.4 mL RA Volume RA Area A4C 8.4 cm2 RA ESV A4C (A-L) 17.2mL RA Vol/BSA A4C A-L RA Length A4C 3.5 cm RA ESV A4C (MOD) 17.0mL LV Diastology MV E' medial 0.134 (>0.07 m/s) MV E Vmax 0.57 (0.4-1.3 m/s) MV E/E' MED 4.30 (<14) MV A Vmax 0.80 (0.4-1.3 m/s) MV E' lateral 0.162 (>0.1 m/s) E/A Ratio 0.7 MV E/E' LAT 3.54 (<14) MV E' Average 0.148 m/s MV E/E'(average) 3.88 Aortic Valve AoV Vmax 1.02 m/s LVOT Vmax 1.03 m/s AoV Peak Grad 4.2 mmHg LVOT Peak Grad 4.2 mmHg AoV Area (Vmax) 2.97 cm2 LVOT VTI 0.194 m AoV VTI 0.223 m LVOT Mean Grad 2.4 mmHg AoV Mean Trey. 0.75 m/s LVOT SV 57.53 mL AoV Mean Grad 2.6 mmHg LVOT Diam s 1.90 cm AoV Area (VTI) 2.58 cm2 AV Regurg Peak Gr. 4.20 mmHg Velocity Ratio 1.01 Mitral Valve MV DT 108 (160-240 msec) MV Vmax TIPS 0.84 m/s MV Mean Grad 1.5 (<2mmHg) MV VTI 0.225 m Pulmonary Valve PV Vmax 0.93 (0.5-1.5 m/s) RVOT Vmax 0.76 m/s PV Peak Grad 3.5 mmHg RVOT Peak Gr. 2.3 mmHg PV Mean Trey 0.69 m/s RVOT VTI 0.186 m PV Mean Grad 2.1 mmHg RVOT Mean Gr. 1.4 mmHg Tricuspid Valve RA Pressure 3.00 mmHg TR Vmax 2.51 m/s TR Peak Grad 25.2 mmHg RVSP (TR) 28.2 mmHg
== END 2024-10-18 02:08 ==
LOC: DI 01:49
PROVIDERS: PCP Nurse Practitioner Family; Visit Provider Internal Medicine Cardiovascular Disease
DX: I49.1 Atrial premature depolarization (principal)
CPT/HCPCS: 93306

== ENCOUNTER 2024-10-18 08:28 | Outpatient (CLI) | payer OTHER, SELFPAY ==
[2024-10-18 08:57] LABS: Calcium 9.4 mg/dL (8.5-10.1); Potassium 4.6 mmol/L (3.5-5.1)
== END 2024-10-18 08:29 | disposition home or self-care (01) ==
LOC: LBO 08:28
PROVIDERS: PCP Nurse Practitioner Family; Visit Provider Nurse Practitioner Family
DX: I45.89 Other specified conduction disorders (principal)
CPT/HCPCS: 36415; 82310; 83735; 84132

== ENCOUNTER 2025-01-24 01:59 | Outpatient (CLI) | payer OTHER, SELFPAY ==
[2025-01-24 13:53] LABS: ALT 63 U/L (14-59); AST 42 U/L (15-37); Albumin 4.3 g/dL (3.4-5.0); Alkaline Phosphatase 95 U/L (46-116); Bilirubin, Direct 0.2 mg/dL (0.0-0.2); Bilirubin, Total 0.5 mg/dL (0.2-1.0); Total Protein 7.6 g/dL (6.4-8.2)
[2025-01-28 12:57] LABS: TB Interpretation Negative (Negative)
== END 2025-01-24 02:00 | disposition home or self-care (01) ==
LOC: LBO 01:59
PROVIDERS: PCP Nurse Practitioner Family; Visit Provider Nurse Practitioner Family
DX: Z23 Encounter for immunization (principal); F10.10 Alcohol abuse, uncomplicated
CPT/HCPCS: 36415; 80076; 86480

== ENCOUNTER 2025-06-04 14:36 | Outpatient (CLI) | payer OTHER, SELFPAY ==
[2025-06-05 18:51] LABS: HIV-1/2 Ag & Ab Screen Negative (Negative)
[2025-06-05 18:58] LABS: Hepatitis A Antibody IgM Negative (Negative); Hepatitis C Ab w Rflx HCV PCR Negative (Negative)
[2025-06-06 10:43] LABS: Syphilis Serology (RPR) Negative (Negative)
== END 2025-06-04 14:37 | disposition home or self-care (01) ==
LOC: LBO 14:43
PROVIDERS: PCP Nurse Practitioner Family; Visit Provider Obstetrics & Gynecology
DX: Z11.3 Encounter for screening for infections with a predominantly sexual mode of transmission (principal)
CPT/HCPCS: 36415; 86704; 86709; 86803; 87340; 87389; 86592

== ENCOUNTER 2025-06-04 17:26 | Outpatient (REF) | payer OTHER, SELFPAY ==
--- NOTE | 2025-06-04 14:30 | PAPFT_PTH ---
PATIENT: Ayah Walton LOC: [facility] U#:[id number] AGE/SX: 24/F ROOM: RE06/04/[address]: Hanny Liang DO : 2000 BED: DIS: 06/04/2025 SPEC #: [id number] RECD: 06/04/25 17:48 STATUS: FREDI REQ #: [id number] RANCHO: 06/04/25 14:[address]: Hnany Liang DEPT: [facility] Cytology RECD BY: Edna Manzano ENTERED: 06/04/25 17:50 SP TYPE: PAPFT OTHR DR: Kenzie Good Tissues: 1 - CX/ENDOCX FOR PAP SMEARS Procedures: PAP THIN PREP/[facility] Screening HPV DNA PROBE Comments: [id number] (HPV 16 & 18/45) (CHLAMYDIA/GC)
[2025-06-05 11:42] LABS: Chlamydia Result Negative (Negative); GC Result Negative (Negative)
== END 2025-06-04 17:27 | disposition home or self-care (01) ==
LOC: LBN 17:26
PROVIDERS: PCP Nurse Practitioner Family; Visit Provider Obstetrics & Gynecology
DX: Z11.3 Encounter for screening for infections with a predominantly sexual mode of transmission (principal); Z12.4 Encounter for screening for malignant neoplasm of cervix
CPT/HCPCS: 87491; 87591; 88142; 87480; 87510; 87624; 87660